=== PATIENT | male | born 1940 | race African-American/Black ===

== ENCOUNTER → 2016-08-28 | Outpatient (CLI) | payer MEDICARE, BC ==
[2016-06-11 16:40] VITALS: BP 129/60
[~2016-08-28] MED LIST: ALBU2.5V5 NEB; CHOL2000 PO; DONE5TAB33 PO; DULO30CA2 PO; ERGO500012 PO; FLUT1DIS5 IH; HYDR12.58 PO; LISI-338 PO; OXYC-244 PO; OXYC-323 PO; PRED-220 PO; PREG75CA PO; SAXA1TBM3 PO; TAMS0.4C2 PO; TRAZ100T12 PO; WARF5TAB PO
--- NOTE | 2016-08-28 08:19 | RAD ---
EXAM: Right groin ultrasound. HISTORY: Hernia repair in June 11, 2016. Right groin swelling. COMPARISON: None. FINDINGS: Sonographic evaluation of the region of right groin swelling was performed. There is a recurrent hernia containing nonobstructed loops of small bowel. This increases with Valsalva. Images of the left inguinal region are unremarkable. IMPRESSION: 1. Recurrent right inguinal hernia containing nonobstructed loops of small bowel.
== END | disposition home or self-care (01) ==
LOC: US 07:32
PROVIDERS: ATTEND Surgery
DX: R19.09 Other intra-abdominal and pelvic swelling, mass and lump (principal); K40.91 Unilateral inguinal hernia, without obstruction or gangrene, recurrent
CPT/HCPCS: 76881

== ENCOUNTER 2016-09-12 06:19 | Day surgery (SDC) | payer MEDICARE, BC ==
[~2016-09-12] VITALS: Ht 182.9 cm; Wt 75.7 kg
[~2016-09-12 06:19] MED LIST changes: +CEFAZOLIN 2GM PREMIX 50 ML IV PRN
[2016-09-12] MEDS ORDERED: BUPIVACAINE-EPI 0.25%-1:200000 50 ML VIAL. ONE (06:23)
[2016-09-12] MEDS ORDERED: ACETAMINOPHEN INTRAVENOUS 100 ML IV ONE ×2 (06:54→07:30)
[2016-09-12] MEDS ORDERED: LIDOCAINE 1% 1 ML SYRINGE. ID PRN (07:00)
[2016-09-12] MEDS ORDERED: IV RINGERS,LACTATED 1000ML 1,000 ML IV SCH (07:00)
[2016-09-12] MEDS ORDERED: PROCHLORPERAZINE 10 MG/2 ML VIAL. IV PRN (07:00)
[2016-09-12] MEDS ORDERED: FENTANYL PF 100 MCG/2 ML VIAL. IV PRN ×2 (07:00)
[2016-09-12] MEDS ORDERED: PROPOFOL 20 ML IV ONE (07:25)
[2016-09-12] MEDS ORDERED: FENTANYL PF 250 MCG/5 ML VIAL. ONE (07:25)
[2016-09-12] MEDS ORDERED: LIDOCAINE 2% 100 MG/5 ML DISP.SYRIN. ONE (07:25)
[2016-09-12] MEDS ORDERED: ROCURONIUM 50 MG/5 ML VIAL. ONE ×3 (07:25→08:04)
[2016-09-12] MEDS ORDERED: HYDROCORTISONE SOD SUCC/PF 100 MG/2 ML VIAL. ONE (07:26)
[2016-09-12] MEDS ORDERED: ONDANSETRON PF 4 MG/2 ML VIAL. ONE (07:26)
[2016-09-12] MEDS ORDERED: DEXAMETHASONE SOD PHOS 20 MG/5 ML VIAL. ONE (07:26)
[2016-09-12] MEDS ORDERED: NEOSTIGMINE METHYLSULFATE 5 MG/5 ML SYRINGE. ONE (07:57)
[2016-09-12] MEDS ORDERED: GLYCOPYRROLATE 1 MG/5 ML VIAL. ONE (07:57)
--- NOTE | 2016-09-12 09:20 | PDOC ---
BRIEF OPERATIVE NOTE Date: Sep 12, 2016 Pre-Op Diagnosis Recurrent RIH Post-Op Diagnosis Same Procedure Performed Robotic assisted L/S RIH repair with mesh Surgeon Dejuan Anesthesia Type: General Blood Loss 10ml Specimens Obtained None Findings as above Complications None ELIZABETH TROTTER MD Sep 12, 2016 09:20
--- NOTE | 2016-09-12 09:22 | DISCH ---
DISCHARGE INSTRUCTIONS Condition on Discharge Condition on Discharge: Stable Activity After Discharge Activity Instructions for Disc: Avoid exertion Other activity instructions: No lifting>20lbs for 2 weeks Diet after Discharge Diet after Discharge: Regular Wound Incision Care Other wound/incision instructi: May shower in 24 hours Contacting the after DC Call your doctor for: If your condition worsens Follow-Up Follow up with: Dr Trotter in 2 weeks ELIZABETH TROTTER MD Sep 12, 2016 09:22
[2016-09-12] MEDS ORDERED: HYDROCODONE/APAP 5/325MG TABLET. PO ONE (10:15)
--- NOTE | 2016-09-12 10:25 | OP ---
DATE OF SURGERY: 09/12/2016 PREOPERATIVE DIAGNOSIS: Recurrent right inguinal hernia. POSTOPERATIVE DIAGNOSIS: Recurrent right inguinal hernia. PROCEDURE: Robotic-assisted laparoscopic right inguinal hernia repair with mesh. SURGEON: Rocael Trotter M.D. INDICATIONS: The patient is a 75-year-old gentleman who had had a previous right inguinal hernia repair about 18 months ago. He is a known smoker with chronic cough, subsequently developed a recurrent hernia in the right side, procedure of robotic-assisted laparoscopic right inguinal hernia repair was explained to the patient in detail. Risks and benefits were also discussed including bleeding, infection, injury done to abdominal contents possibly sustained, further open operations. Alternatives of this procedure were also discussed with the patient who seemed to understand and gave a verbal and written consent to have the procedure performed. DESCRIPTION OF PROCEDURE: The patient was taken to the operating room and placed in the supine position. General anesthesia was initiated. Once he was asleep and intubated, he was repositioned in low lithotomy. His abdomen was prepped and draped in usual sterile fashion using ChloraPrep. An area just above the umbilicus was injected with 0.25% Marcaine with epinephrine. Incision was made with an 11 blade scalpel and a Veress needle was placed within the abdomen, pneumoperitoneum was achieved. Once this was complete, 8-mm port was placed and a 30-degree scope and camera placed within the abdomen. Abdomen was inspected. No other abnormalities were noted. It was noted that he did have a right inguinal hernia with containing bowel. At this point, two 8-mm ports were then placed, one in the left mid abdomen and one in the right mid abdomen under direct visualization. At this point, the da Annabella robot was brought in between the patient's legs and docked to the ports. Surgeon went to the robotic console. Using a grasper and EndoShears scissors, the peritoneum on the right side was incised. This flap was carried down past to the hernia defect reducing the hernia sac. Once this was complete and cleared up, a ProGrip mesh was placed on the floor of the inguinal canal covering the hernia defect using a 2-0 Vicryl. This was sutured into place with two single interrupted sutures, one up along the Edvin's ligament and one laterally. The peritoneum was then closed over the mesh with a running V-Loc suture. The hernia sac was tacked to the anterior abdominal wall with the V-Loc suture. Once this was complete, the da Annabella robot was undocked. Pneumoperitoneum was reduced. All ports were removed. Fascial defect at the umbilicus closed with [id number] Vicryl suture and the skin was reapproximated at all port sites with 4-0 subcuticular Monocryl. Mastisol, Steri-Strips, and Band-Aids were applied as dressings. The testicles were inspected and appeared to be within the scrotum in proper position. The patient was awakened, extubated in the operating room, taken to recovery in stable condition. All sponge, instrument counts listed as correct. Estimated blood loss 10 mL. ROCAEL TROTTER MD DR: JEFFREY/malka JOB#: [id number] / [id number] Claudia Tracey MD
[2016-09-12] MEDS ORDERED: ALBUTEROL SULFATE 2.5 MG/3 ML NEBU. ONE (10:26)
[2016-09-12] MEDS ORDERED: ALBUTEROL SULFATE 2.5 MG/3 ML NEBU. NEB ONE (10:30)
[2016-09-12 11:15] VITALS: BP 128/63
== END 2016-09-12 12:40 | disposition home or self-care (01) ==
LOC: SURG 06:19
PROVIDERS: ATTEND Surgery
DX: K40.91 Unilateral inguinal hernia, without obstruction or gangrene, recurrent (principal); I10 Essential (primary) hypertension; F44.9 Dissociative and conversion disorder, unspecified; M19.90 Unspecified osteoarthritis, unspecified site; F41.9 Anxiety disorder, unspecified; F32.9 Major depressive disorder, single episode, unspecified; E11.9 Type 2 diabetes mellitus without complications; Z98.41 Cataract extraction status, right eye; Z98.42 Cataract extraction status, left eye; Z90.49 Acquired absence of other specified parts of digestive tract; Z96.641 Presence of right artificial hip joint
CPT/HCPCS: 49651; 82947; C1781; J0131; J0690; J1100; J1720; J2405; J2704; J2710; J3010; J3490; J7120

== ENCOUNTER → 2017-06-25 | Outpatient (CLI) | payer MEDICARE, BC | END | disposition home or self-care (01) | LOC: US 16:00 | DX: I72.1 Aneurysm of artery of upper extremity (principal); I70.8 Atherosclerosis of other arteries | CPT/HCPCS: 93931 ==

== ENCOUNTER → 2017-07-17 | Outpatient (CLI) | payer MEDICARE, BC | END | disposition home or self-care (01) | LOC: RAD 10:08 | DX: M47.892 Other spondylosis, cervical region (principal); Z98.890 Other specified postprocedural states | CPT/HCPCS: 72040 ==

== ENCOUNTER → 2017-08-07 | Outpatient (CLI) | payer MEDICARE, BC | END | disposition home or self-care (01) | LOC: RAD 10:29 | DX: M48.02 Spinal stenosis, cervical region (principal); Z98.1 Arthrodesis status; Z98.890 Other specified postprocedural states | CPT/HCPCS: 72040 ==

== ENCOUNTER → 2018-01-05 | Outpatient (CLI) | payer MEDICARE, BC | END | disposition home or self-care (01) | LOC: US 07:53 | DX: R14.0 Abdominal distension (gaseous) (principal) | CPT/HCPCS: 76700 ==

== ENCOUNTER → 2018-01-05 | Outpatient (CLI) | payer MEDICARE, BC ==
[~2018-01-05] MED LIST changes: -ALBU2.5V5 NEB; -CEFAZOLIN 2GM PREMIX 50 ML IV PRN; -CHOL2000 PO; -DONE5TAB33 PO; -DULO30CA2 PO; -ERGO500012 PO; -FLUT1DIS5 IH; -HYDR12.58 PO; +IOHEXOL 180 MG/ML 10 ML VIAL.; +LIDOCAINE 1% PF 2 ML VIAL.; -LISI-338 PO; -OXYC-244 PO; -OXYC-323 PO; -PRED-220 PO; -PREG75CA PO; -SAXA1TBM3 PO; -TAMS0.4C2 PO; -TRAZ100T12 PO; -WARF5TAB PO; +methylPREDNISolone ACETATE 40 MG/ML VIAL.; +methylPREDNISolone ACETATE 80 MG/ML VIAL.
== END ==
LOC: PNCL 08:48
DX: M50.123 Cervical disc disorder at C6-C7 level with radiculopathy (principal); M96.1 Postlaminectomy syndrome, not elsewhere classified; M48.02 Spinal stenosis, cervical region; M47.22 Other spondylosis with radiculopathy, cervical region; I10 Essential (primary) hypertension; M19.90 Unspecified osteoarthritis, unspecified site; E78.00 Pure hypercholesterolemia, unspecified; F32.9 Major depressive disorder, single episode, unspecified; F41.9 Anxiety disorder, unspecified; J44.9 Chronic obstructive pulmonary disease, unspecified; E11.9 Type 2 diabetes mellitus without complications; Z98.890 Other specified postprocedural states; Z98.1 Arthrodesis status; Z79.899 Other long term (current) drug therapy; Z98.42 Cataract extraction status, left eye; Z98.41 Cataract extraction status, right eye; Z90.49 Acquired absence of other specified parts of digestive tract; Z83.3 Family history of diabetes mellitus; Z82.49 Family history of ischemic heart disease and other diseases of the circulatory system
CPT/HCPCS: 62321; J1030; J1040; Q9965

== ENCOUNTER → 2018-01-20 | Outpatient (CLI) | payer MEDICARE, BC ==
[~2018-01-20] MED LIST changes: -LIDOCAINE 1% PF 2 ML VIAL.; +LIDOCAINE 2% PF 2ML VIAL.
== END | disposition home or self-care (01) ==
LOC: PNCL 11:08
DX: M50.123 Cervical disc disorder at C6-C7 level with radiculopathy (principal); M96.1 Postlaminectomy syndrome, not elsewhere classified; Z98.42 Cataract extraction status, left eye; Z98.41 Cataract extraction status, right eye; Z96.1 Presence of intraocular lens; Z98.890 Other specified postprocedural states; G20 Parkinson's disease; E11.42 Type 2 diabetes mellitus with diabetic polyneuropathy; E78.00 Pure hypercholesterolemia, unspecified; I10 Essential (primary) hypertension; J44.9 Chronic obstructive pulmonary disease, unspecified; Z90.49 Acquired absence of other specified parts of digestive tract; M19.90 Unspecified osteoarthritis, unspecified site; Z96.641 Presence of right artificial hip joint; F32.9 Major depressive disorder, single episode, unspecified; F41.9 Anxiety disorder, unspecified; F17.200 Nicotine dependence, unspecified, uncomplicated; Z83.3 Family history of diabetes mellitus; Z82.49 Family history of ischemic heart disease and other diseases of the circulatory system; Z79.84 Long term (current) use of oral hypoglycemic drugs; Z79.899 Other long term (current) drug therapy; Z98.1 Arthrodesis status
CPT/HCPCS: 62321; J1030; J1040; J2001; Q9965

== ENCOUNTER → 2018-02-10 | Outpatient (CLI) | payer MEDICARE, BC ==
[2017-06-06 17:14] VITALS: BP 117/69
[~2018-02-10] MED LIST changes: +ALBU2.5V14 NEB; +ALBU2.5V5 NEB; +BENZ-8 PO; +CHOL2000 PO; +DONE5TAB56 PO; +DULO30CA2 PO; +ERGO500027 PO; +FLUT1DIS5 IH; +HYDR12.58 PO; -IOHEXOL 180 MG/ML 10 ML VIAL.; +IPRA0.2S5 NEB; -LIDOCAINE 2% PF 2ML VIAL.; +LISI-338 PO; +METF500T5 PO; +METH-38 PO; +OXYC-323 PO; +OXYC-327 PO; +PRED-220 PO; +PREG150C PO; +PREG75CA PO; +SAXA1TBM3 PO; +SPIR50TA4 PO; +TAMS0.4C2 PO; +TRAZ-86 PO; +VITA150T PO; +WARF-78 PO; +[UNRECOGNIZED DRUG - CODE] PO; -methylPREDNISolone ACETATE 40 MG/ML VIAL.; -methylPREDNISolone ACETATE 80 MG/ML VIAL.
[2018-02-10 14:54] LABS: BASO # 0.1 x10^3/uL (0.0-0.2); BASO % 1 % (0-3); EOS % 0 % (0-3); HEMATOCRIT 42.5 % (39.0-53.0); HEMOGLOBIN 14.6 g/dL (13.0-17.5); LYMPH # 1.3 x10^3/uL (1.0-4.8); LYMPH % 9 % (24-48); MEAN CORPUSCULAR HEMOGLOBIN 31 pg (25-35); MEAN CORPUSCULAR HGB CONC 34 g/dL (31-37); MEAN CORPUSCULAR VOLUME 91 fL (79-100); MONO # 0.5 x10^3/uL (0.0-1.1); MONO % 3 % (0-9); NEUT # 11.6 x10^3uL (1.8-7.7); NEUT % 87 % (31-73); PLATELET COUNT 232 x10^3/uL (140-400); RED BLOOD COUNT 4.65 x10^6/uL (4.30-5.70); RED CELL DISTRIBUTION WIDTH 14.7 % (11.5-14.5); WHITE BLOOD COUNT 13.4 x10^3/uL (4.0-11.0)
[2018-02-10 15:11] LABS: ALBUMIN 3.4 g/dL (3.4-5.0); ALBUMIN/GLOBULIN RATIO 0.8 (1.0-1.7); CALCIUM 9.3 mg/dL (8.5-10.1); CREATININE 0.9 mg/dL (0.7-1.3); POTASSIUM 4.8 mmol/L (3.5-5.1); TOTAL BILIRUBIN 0.3 mg/dL (0.2-1.0); TOTAL PROTEIN 7.6 g/dL (6.4-8.2)
[2018-02-10 18:19] LABS: % BASOS 1 % (0-3); % LYMPHS 11 % (24-48); % MONOS 4 % (0-10); % SEGS 84 % (35-66)
[2018-02-10 18:42] LABS: PLT ESTIMATE ADEQUATE (ADEQUATE); TOXIC GRANULATION SLIGHT
[2018-02-12 01:14] LABS: HEMOGLOBIN A1C 6.2 % (4.8-5.6)
== END | disposition home or self-care (01) ==
LOC: SURGPAT 13:20
PROVIDERS: ATTEND Neurological Surgery
DX: Z01.818 Encounter for other preprocedural examination (principal); M48.02 Spinal stenosis, cervical region; M50.121 Cervical disc disorder at C4-C5 level with radiculopathy; I10 Essential (primary) hypertension; E11.9 Type 2 diabetes mellitus without complications; E78.5 Hyperlipidemia, unspecified; E78.00 Pure hypercholesterolemia, unspecified; Z79.4 Long term (current) use of insulin; Z82.49 Family history of ischemic heart disease and other diseases of the circulatory system; J43.9 Emphysema, unspecified; Z87.891 Personal history of nicotine dependence; Z96.641 Presence of right artificial hip joint
CPT/HCPCS: 36415; 80053; 83036; 85007; 85025; 87641

== ENCOUNTER → 2018-04-08 | Outpatient (CLI) | payer MEDICARE, BC ==
[2018-02-17 11:20] VITALS: BP 121/72
[~2018-04-08] MED LIST changes: +METF500T16 PO; -METF500T5 PO
--- NOTE | 2018-04-08 12:37 | RAD ---
EXAM: Cervical spine, 2 views. HISTORY: Fusion. COMPARISON: 02/16/2018 FINDINGS: 2 views of the cervical spine are obtained. There is instrumented anterior spinal fusion and interbody fusion at C3-C4 and C4-C5. There is mild anterolisthesis of C4 on C5, measuring 2.5 mm. There is degenerative endplate remodeling with disc space narrowing and osteophytosis at C5-C6 and C6-C7. There is facet arthropathy at all levels. IMPRESSION: 1. Instrumented fusion at C3-C5. 2. Degenerative change primarily at C5-C7. 3. Mild anterolisthesis of C4 on C5. Electronically signed by: Mireya Lange MD (04/08/2018 12:33 PM) [facility]
== END | disposition home or self-care (01) ==
LOC: RAD 11:49
PROVIDERS: ATTEND Neurological Surgery
DX: Z47.89 Encounter for other orthopedic aftercare (principal); M47.892 Other spondylosis, cervical region; Z98.1 Arthrodesis status
CPT/HCPCS: 72040

== ENCOUNTER → 2018-06-08 | Outpatient (CLI) | payer MEDICARE, BC ==
[2018-02-17 11:20] VITALS: BP 121/72
[~2018-06-08] MED LIST changes: -OXYC-323 PO; -OXYC-327 PO; +OXYC1TAB15 PO; +OXYC1TAB19 PO
--- NOTE | 2018-06-08 16:46 | RAD ---
2 views of the cervical spine compared to similar study dated April 08, 2018 for postop cervical surgery, patient felt a pop in the neck after surgery. FINDINGS: There is anterior cervical disc fusion from C3 through C5, with spacers at both levels. Fixation hardware from C3 to C4 is not affixed to the C4-5 hardware, however the overall appearance of the surgical site and all hardware is unchanged from prior radiographs. Degenerative narrowing at C5-6 and C6-7 is noted with anterior osteophytes as well as small posterior osteophytes. Prevertebral soft tissues are grossly unremarkable. Right carotid artery calcifications are noted. IMPRESSION: 1. Stable appearing postsurgical changes of the cervical spine as described. No acute osseous or alignment abnormality. 2. Right carotid artery atherosclerosis. Electronically signed by: Farshad Soto MD (06/08/2018 4:42 PM) [facility]
== END | disposition home or self-care (01) ==
LOC: RAD 15:42
PROVIDERS: ATTEND Family Medicine
DX: I65.21 Occlusion and stenosis of right carotid artery (principal); M25.78 Osteophyte, vertebrae; M48.02 Spinal stenosis, cervical region
CPT/HCPCS: 72040

== ENCOUNTER → 2018-06-22 | Outpatient (CLI) | payer MEDICARE, BC ==
[2018-02-17 11:20] VITALS: BP 121/72
[~2018-06-22] MED LIST changes: +GADOBUTROL 10 MMOL/10 ML VIAL IV ONE; +SPIR25TA5 PO
--- NOTE | 2018-06-22 15:24 | KCIC ---
MRI Cervical Spine with and without contrast History: Cervical stenosis, previous surgeries, bilateral upper extremity numbness Technique: Multiplanar, multi sequential pre and postcontrast MR imaging was performed of the cervical spine. Comparison: Cervical spine radiographs June 08, 2018 and June 01, 2017 MRI exam Findings: There is some motion degradation. As seen on recent radiographs although new since previous MRI exam, there are anterior metallic plates at C3-C4 and C4-5. This exam does not accurately evaluate hardware. Osseous interbody fusion is not apparent. There is again fairly advanced degenerative disc disease C6-7 and to lesser degree at C5-6 and C7-T1. There is again grade 1 anterior spondylolisthesis C7-T1 and C4-5. Cervical vertebral body stature is overall maintained. There is no convincing enhancement of the cervical cord. Allowing for motion artifact, no convincing marrow edema is identified. C2-C3: There is very minimal disc osteophyte complex and protrusion. Central canal is adequate about 15 mm. There is again likely mild posterior narrowing of the left neural foramen, right neural foramen not significantly narrowed. C3-C4: There is severe left facet degenerative change. There is mild buckling of the ligamentum flavum. Central canal is borderline about 10 mm. Poorly evaluated, there is probable mild neural foramina compromise bilaterally. C4-C5: There is disc osteophyte complex. There is buckling of the ligamentum flavum. Central canal is narrowed to about 7 to 8 mm. There is uncovertebral and facet degenerative change, suspected fairly severe left and moderate to severe right neural foramina compromise. C5-C6: There is disc osteophyte complex and bulge. There is buckling of the ligamentum flavum. There is likely mild narrowing of the central canal about 9 mm. There is facet and uncovertebral degenerative change bilaterally, suspected severe left and at least moderate to severe right neural foramina compromise. C6-C7: There is very minimal disc osteophyte complex and bulge. Central canal is borderline about 10 mm. There is severe narrowing of the left neural foramen due to facet and uncovertebral degenerative change, likely at least moderate narrowing on the right. C7-T1: There is again posterior bulge and more central protrusion. Central canal is narrowed to about 9 to 10 mm. There is facet degenerative change. There is fairly severe narrowing of the left neural foramen, right neural foramen adequate. Impression: 1. There is anterior fusion hardware C3-4 and C4-5, hardware not accurately evaluated on this exam. There is spinal stenosis about 7 mm at C4-5, minimally at C5-6 and C7-T1. 2. Multilevel facet and uncovertebral degenerative change results in multilevel neural foramina compromise, more significant narrowing on the left at C7-T1 and C6-7, bilaterally at C5-6 and C4-5, a lesser degree of narrowing on the right at C6-7. Electronically signed by: Fidel Rossi MD (06/22/2018 3:20 PM) [facility]
== END | disposition home or self-care (01) ==
LOC: KCIC MRI 13:05
PROVIDERS: ATTEND Neurological Surgery
DX: M48.02 Spinal stenosis, cervical region (principal); M48.03 Spinal stenosis, cervicothoracic region; M25.78 Osteophyte, vertebrae; M43.13 Spondylolisthesis, cervicothoracic region; M50.33 Other cervical disc degeneration, cervicothoracic region
CPT/HCPCS: 72156; 82565; A9585

== ENCOUNTER 2020-01-31 14:58 | Inpatient (IN) | payer MEDICARE, BC ==
[~2020-01-31] VITALS: Ht 182.9 cm; Wt 74.4 kg
[~2020-01-31 14:58] MED LIST changes: +FLUT16SP NS; -GADOBUTROL 10 MMOL/10 ML VIAL IV ONE; +HYDR-3164 PO; +IPRA3AMP29 NEB; +LEVO500T59 PO; +POLY17PO28 PO; +PRED20TA PO; +PREG-9 PO; -PREG75CA PO; +TIOT18CA IH; +TRAZ-123 PO; -TRAZ-86 PO; +URSO300C26 PO; -WARF-78 PO; +WARF5TAB2 PO
[2020-01-31] MEDS ORDERED: IPRATRPIUM/ALBUTEROL 0.5/2.5MG 3 ML NEBU. NEB ONE (15:30)
--- NOTE | 2020-01-31 15:37 | PHYS DOC ---
Past Medical History Past Medical History: COPD, Depression, Diabetes-Type II, High Cholesterol, Hypertension Additional Past Medical Histor: NEUROPATHY Past Surgical History: Cholecystectomy, Hip Replacement Additional Past Surgical Histo: RIGHT HIP Smoking Status: Former Smoker Alcohol Use: None Drug Use: None General Adult EDM: Chief Complaint: SHORTNESS OF BREATH HPI: HPI: Patient is a 79 year old male who presents with states he was at Dr. Rich's office for this cough and increased shortness of breath and was sent here for evaluation. Patient states he wears oxygen every day all day at 3 L. Patient is currently on 3 L at 100%. Patient states is not coughing up any weakness. States he is on prednisone 20 mg a day. He states he is not currently on any antibiotics. He states that off and on for the last 2 weeks he is had increased shortness of breath and left-sided chest pains. He also states at times the pain will go into his left upper abdomen. He states that this time he has no pain other than his chronic neuropathy pains. He does have COPD, history of respiratory failure, pneumonia, arthritis, right inguinal hernia, neuropathy, diabetes, high cholesterol, hypertension, cholecystectomy. Patient does speak in full sentences but does sound slightly winded when speaking. Lungs have inspiratory expiratory coarse sounds throughout. He is afebrile. He is tachycardic at 113 but is sinus rhythm. He rates his overall neuropathy pains in his extremities at a 5 out of 10. Review of Systems: Review of Systems: Constitutional: Denies fever or chills. [] Eyes: Denies change in visual acuity. [] HENT: Denies nasal congestion or sore throat. [] Respiratory: Increased cough or shortness of breath. [] Cardiovascular: Intermittent left chest pain or denies edema. [] GI: Intermittent Left abdominal pain, denies nausea, vomiting, bloody stools or diarrhea. [] : Denies dysuria. [] Musculoskeletal: Denies back pain or joint pain. [] Integument: Denies rash. [] Neurologic: Denies headache, focal weakness or sensory changes. [] Endocrine: Denies polyuria or polydipsia. [] Lymphatic: Denies swollen glands. [] Psychiatric: Denies depression or anxiety. [] Heart Score: HEART Score for Chest Pain: HEART Score for Chest Pain Response (Comments) Value History Slighlty/Non-Suspicious 0 ECG Nonspecific Repolarizatio 1 Age > 65 2 Risk Factors >3 Risk Factors or Hx CAD 2 Total 5 Risk Factors: Risk Factors: DM, Current or recent (<one month) smoker, HTN, HLP, family history of CAD, obesity. Risk Scores: Score 0 - 3: 2.5% MACE over next 6 weeks - Discharge Home Score 4 - 6: 20.3% MACE over next 6 weeks - Admit for Clinical Observation Score 7 - 10: 72.7% MACE over next 6 weeks - Early Invasive Strategies Current Medications: Current Medications Medications (Trade) Dose Ordered Sig/Lurdes Start Time Stop Time Status Last Admin Dose Admin Albuterol/ Ipratropium (Duoneb) 3 ml 1X ONCE 01/31/20 15:30 01/31/20 15:31 Allergies: Allergies: Allergies Coded Allergies Type Severity Reaction Last Updated Verified codeine Adverse Reaction Intermediate 07/13/18 Yes Physical Exam: PE: Constitutional: Well developed, well nourished, no acute distress, non-toxic appearance. [] HENT: Normocephalic, atraumatic, bilateral external ears normal, oropharynx moist, no oral exudates, nose normal. [] Eyes: PERRLA, EOMI, conjunctiva normal, no discharge. [] Neck: Normal range of motion, no tenderness, supple, no stridor. [] Cardiovascular:Heart rate regular tachy rhythm, no murmur [] Lungs & Thorax: Bilateral breath sounds inspiratory and expiratory coarse sounds to auscultation [] Abdomen: Bowel sounds normal, soft, no tenderness, no masses, no pulsatile masses. [] Skin: Warm, dry, no erythema, no rash. [] Back: No tenderness, no CVA tenderness. [] Extremities: No tenderness, no cyanosis, no clubbing, ROM intact, no edema. [] Neurologic: Alert and oriented X 3, normal motor function, normal sensory function, no focal deficits noted. [] Psychologic: Affect normal, judgement normal, mood normal. [] EKG: EK and read by Dr Gauthier as Sinus Tachycardia without STEMI[] Radiology/Procedures: Radiology/Procedures: [] Impression: [facility] [address] [place] [address] IMAGING REPORT Signed PATIENT: MAYA PALOMARES: [id number] : 1940 LOCATION: ER AGE: 79 SEX: M EXAM STATUS: REG ER ORD. PHYSICIAN: INOCENCIA TEIXEIRA APRN REASON: soa PROCEDURE: PORTABLE CHEST 1V EXAM: AP View of the chest DATE: 01/31/2020 3:24 PM INDICATION: Shortness of air COMPARISON: 07/13/2018 FINDINGS: The heart is not enlarged. Mediastinal and hilar contours are stable. Patchy airspace opacities in the right lung base, may be partially nodular. Extensive emphysematous changes bilaterally. Trace blunting right costophrenic angle likely small left pleural effusion. No definite pneumothorax is seen although extensive bullous changes noted. IMPRESSION: 1. Right lung base airspace opacities. Imaging follow-up to resolution is recommended, particularly given the findings on prior radiograph. 2. Background of emphysematous change. Electronically signed by: Daniel Ramirez MD (01/31/2020 4:51 PM) [facility] DICTATED and SIGNED BY: DANIEL RAMIREZ MD DATE: 01/31/20 1651 [facility] [address] [place], [place] [id number] IMAGING REPORT Signed PATIENT: MAYA PALOMARES: [id number] : 1940 LOCATION: ER AGE: 79 SEX: M EXAM STATUS: REG ER ORD. PHYSICIAN: INOCENCIA TEIXEIRA APRN REASON: abd pain PROCEDURE: CT ABD PELV W/ IV CONTRST ONLY EXAM: CT Abdomen and Pelvis with IV contrast CLINICAL HISTORY: Abdominal pain. COMPARISON: 01/31/2020-chest x-ray. CT chest 07/13/2018 TECHNIQUE: Helical CT of the abdomen and pelvis was performed following the administration of IV contrast. Axial, coronal and sagittal reformatted images were generated. ---PQRS compliance statement - One or more of the following individualized dose reduction techniques were utilized for this study: 1. Automated exposure control 2. Adjustment of the mA and/or kV according to patient size 3. Use of iterative reconstruction technique--- FINDINGS: Lower chest: Linear opacities in the lower lobes of the lungs likely scarring/atelectasis. Extensive bronchiectasis right lower lobe with associated nodular opacity measures 1.1 x 0.9 cm with associated linear opacities. The dominant portion of the previously seen pleural-based right lower lobe mass has resolved. Emphysematous changes are seen. Abdomen and pelvis: Liver and biliary system: No dominant liver lesion is seen. There has been a cholecystectomy. No biliary ductal dilatation. Spleen: Calcified granuloma are seen within the spleen. Pancreas: Unremarkable Adrenal glands: Right adrenal lesion measures approximately 1.3 cm, previously described as an adenoma. Kidneys: Symmetric nephrograms although intermittent renal cortical scarring bilaterally no hydronephrosis or hydroureter. No dominant renal lesion is seen. Lymph nodes/retroperitoneum: No abdominal or pelvic lymphadenopathy. Vessels: Aorta is normal in caliber with dense atherosclerotic calcifications of the infrarenal aorta and bilateral iliacs. Bowel/Peritoneal cavity: Moderate colonic stool content is seen. No small or large bowel dilatation. Colonic diverticula are seen. No CT evidence for acute diverticulitis. Appendix is normal. No abdominal or pelvic ascites. Abdominal wall: Trace fat-containing periumbilical hernia. Bladder: Diffuse bladder wall thickening likely cystitis. Bones: Extensive streak artifact from the right hip arthroplasty limits evaluation of the pelvis. Rightward curvature lumbar spine apex L4. Left hip joint osteoarthritis. IMPRESSION: 1. Moderate colonic stool content is seen. No bowel obstruction. 2. Appendix is normal. 3. Accounting for postcholecystectomy change, no biliary ductal dilatation. 4. Bladder wall thickening may be seen with cystitis although incompletely assessed given streak artifact from right hip arthroplasty. 5. Right lower lobe 1.1 x 0.9 cm nodular opacity adjacent to bronchiectasis. Recommend follow-up CT in 3 months to exclude underlying mass. Although PET CT can also be performed, respiratory motion artifact may limit evaluation given the proximity to the diaphragm. Electronically signed by: Daniel Ramirez MD (01/31/2020 5:12 PM) [facility] DI[facility]ATED and SIGNED BY: DANIEL RAMIREZ MD DATE: 01/31/20 171 Course & Med Decision Making: Course & Med Decision Making Pertinent Labs and Imaging studies reviewed. (See chart for details) COVID-19 CRITERIA: The patient was evaluated during the global COVID-19 pandemic, and that diagnosis was suspected/considered upon their initial presentation. Their evaluation, treatment and testing was consistent with current guidelines for patients who present with complaints or symptoms that may be related to COVID-19. Alert and oriented x4. See HPI. Skin pink warm and dry. He is very no extremity edema. Patient states he has been using his nebulizer at home and it does help. IMPRESSION: 1. Moderate colonic stool content is seen. No bowel obstruction. 2. Appendix is normal. 3. Accounting for postcholecystectomy change, no biliary ductal dilatation. 4. Bladder wall thickening may be seen with cystitis although incompletely assessed given streak artifact from right hip arthroplasty. 5. Right lower lobe 1.1 x 0.9 cm nodular opacity adjacent to bronchiectasis. Recommend follow-up CT in 3 months to exclude underlying mass. Although PET CT can also be performed, respiratory motion artifact may limit evaluation given the proximity to the diaphragm. Doxycycline is ordered. Patient is tested for COVID. [] Dragon Disclaimer: Dragon Disclaimer: This electronic medical record was generated, in whole or in part, using a voice recognition dictation system. COVID-19 Patient Risks: Age 65 or older: Yes Sign of co-morbidity: Yes Exp to person + for COVID: No Exp to PUI: No Travel from affected area: No Lower respiratory symptoms: Yes Fever: No Other: No PPE Use: Full PPE with N95 mask or PAPR: Yes Departure Departure Impression: Primary Impression: Pneumonia Qualified Codes: J18.9 - Pneumonia, unspecified organism Additional Impression: Person under investigation for COVID-19 Disposition: ADMITTED INPATIENT Admitting Physician: YADIEL Condition: STABLE Referrals: Claudia RICH MD (PCP) Justicifation of Admission Dx: Justifications for Admission: Justification of Admission Dx: Yes Acute COPD Exacerbation: Acute COPD Exacerbation INOCENCIA TEIXEIRA IRRIGATOR SPRINKLING SYSTEM Jan 31, 2020 15:37
[2020-01-31 15:50] LABS: BASO % 0 % (0-3); EOS % 0 % (0-3); HEMATOCRIT 44.7 % (39.0-53.0); HEMOGLOBIN 15.3 g/dL (13.0-17.5); LYMPH # 0.5 x10^3/uL (1.0-4.8); LYMPH % 3 % (24-48); MEAN CORPUSCULAR HEMOGLOBIN 31 pg (25-35); MEAN CORPUSCULAR HGB CONC 34 g/dL (31-37); MEAN CORPUSCULAR VOLUME 91 fL (79-100); MONO # 0.4 x10^3/uL (0.0-1.1); MONO % 2 % (0-9); NEUT % 94 % (31-73); PLATELET COUNT 282 x10^3/uL (140-400); RED BLOOD COUNT 4.93 x10^6/uL (4.30-5.70); RED CELL DISTRIBUTION WIDTH 13.4 % (11.5-14.5)
[2020-01-31 16:05] LABS: CALCIUM 9.7 mg/dL (8.5-10.1); CREATININE 1.3 mg/dL (0.7-1.3); GFR 64.4; POTASSIUM 5.5 mmol/L (3.5-5.1)
[2020-01-31 16:16] LABS: ALBUMIN 3.9 g/dL (3.4-5.0); ALBUMIN/GLOBULIN RATIO 0.9 (1.0-1.7); TOTAL BILIRUBIN 0.5 mg/dL (0.2-1.0); TOTAL PROTEIN 8.1 g/dL (6.4-8.2)
[2020-01-31] MEDS ORDERED: CONTRAST GIVEN. MC PRN (16:30)
[2020-01-31] MEDS ORDERED: IOHEXOL 300 MG/ML 100ML VIAL. IV ONE (16:30)
[2020-01-31 16:35] LABS: BILIRUBIN,URINE NEGATIVE (NEG); CLARITY,URINE CLEAR; COLOR,URINE YELLOW; NITRITE,URINE NEGATIVE (NEG); PROTEIN,URINE NEGATIVE (NEG-TRACE); UROBILINOGEN,URINE 0.2 mg/dL (0.2 mg/dL)
[2020-01-31 16:40] LABS: BASE EXCESS COOX -1 mmol/L (-3-3); HCO3 COOX 25 mmol/L (21-28); METHEMOGLOBIN 0.4 % (0.0-1.9); OXYHEMOGLOBIN 96.6 %; PCO2 COOX 44 mmHg (35-46); PO2 COOX 102 mmHg (65-108); SAT O2 COOX 97 % (92-99)
[2020-01-31 16:40] LABS: BACTERIA,URINE MODERATE /HPF (0-FEW); HYALINE CASTS, URINE MODERATE /HPF; RBC,URINE 0 /HPF (0-2); SQUAMOUS EPITHELIAL CELL,UR FEW /LPF
--- NOTE | 2020-01-31 16:54 | RAD ---
EXAM: AP View of the chest DATE: 01/31/2020 3:24 PM INDICATION: Shortness of air COMPARISON: 07/13/2018 FINDINGS: The heart is not enlarged. Mediastinal and hilar contours are stable. Patchy airspace opacities in the right lung base, may be partially nodular. Extensive emphysematous changes bilaterally. Trace blunting right costophrenic angle likely small left pleural effusion. No definite pneumothorax is seen although extensive bullous changes noted. IMPRESSION: 1. Right lung base airspace opacities. Imaging follow-up to resolution is recommended, particularly given the findings on prior radiograph. 2. Background of emphysematous change. Electronically signed by: Daniel Anderson MD (01/31/2020 4:51 PM) [facility]
--- NOTE | 2020-01-31 17:15 | RAD ---
EXAM: CT Abdomen and Pelvis with IV contrast CLINICAL HISTORY: Abdominal pain. COMPARISON: 01/31/2020-chest x-ray. CT chest 07/13/2018 TECHNIQUE: Helical CT of the abdomen and pelvis was performed following the administration of IV contrast. Axial, coronal and sagittal reformatted images were generated. ---PQRS compliance statement - One or more of the following individualized dose reduction techniques were utilized for this study: 1. Automated exposure control 2. Adjustment of the mA and/or kV according to patient size 3. Use of iterative reconstruction technique--- FINDINGS: Lower chest: Linear opacities in the lower lobes of the lungs likely scarring/atelectasis. Extensive bronchiectasis right lower lobe with associated nodular opacity measures 1.1 x 0.9 cm with associated linear opacities. The dominant portion of the previously seen pleural-based right lower lobe mass has resolved. Emphysematous changes are seen. Abdomen and pelvis: Liver and biliary system: No dominant liver lesion is seen. There has been a cholecystectomy. No biliary ductal dilatation. Spleen: Calcified granuloma are seen within the spleen. Pancreas: Unremarkable Adrenal glands: Right adrenal lesion measures approximately 1.3 cm, previously described as an adenoma. Kidneys: Symmetric nephrograms although intermittent renal cortical scarring bilaterally no hydronephrosis or hydroureter. No dominant renal lesion is seen. Lymph nodes/retroperitoneum: No abdominal or pelvic lymphadenopathy. Vessels: Aorta is normal in caliber with dense atherosclerotic calcifications of the infrarenal aorta and bilateral iliacs. Bowel/Peritoneal cavity: Moderate colonic stool content is seen. No small or large bowel dilatation. Colonic diverticula are seen. No CT evidence for acute diverticulitis. Appendix is normal. No abdominal or pelvic ascites. Abdominal wall: Trace fat-containing periumbilical hernia. Bladder: Diffuse bladder wall thickening likely cystitis. Bones: Extensive streak artifact from the right hip arthroplasty limits evaluation of the pelvis. Rightward curvature lumbar spine apex L4. Left hip joint osteoarthritis. IMPRESSION: 1. Moderate colonic stool content is seen. No bowel obstruction. 2. Appendix is normal. 3. Accounting for postcholecystectomy change, no biliary ductal dilatation. 4. Bladder wall thickening may be seen with cystitis although incompletely assessed given streak artifact from right hip arthroplasty. 5. Right lower lobe 1.1 x 0.9 cm nodular opacity adjacent to bronchiectasis. Recommend follow-up CT in 3 months to exclude underlying mass. Although PET CT can also be performed, respiratory motion artifact may limit evaluation given the proximity to the diaphragm. Electronically signed by: Daniel Anderson MD (01/31/2020 5:12 PM) [facility]
[2020-01-31] MEDS ORDERED: IV NORMAL SALINE 1000ML BAG 1,000 ML IV ONE (17:30)
[2020-01-31] MEDS ORDERED: methylPREDNISolone SOD SUCC PF 125 MG/2 ML VIAL. IV ONE (17:30)
[2020-01-31] MEDS ORDERED: ONDANSETRON PF 4 MG/2 ML VIAL. IV PRN (18:00)
[2020-01-31] MEDS ORDERED: DOXYCYCLINE HYCLATE 100 MG in IV DEXTROSE 5% 100ML 100 ML IV ONE (18:00)
[2020-01-31 18:07] LABS: % LYMPHS 2 % (24-48); % MONOS 3 % (0-10); % SEGS 95 % (35-66); PLT ESTIMATE ADEQUATE (ADEQUATE)
[2020-01-31 21:37] VITALS: BP 143/61
--- NOTE | 2020-01-31 21:43 | NUR ---
Pt. arrived around 0620 via bed from ED w/ Pneumonia and PUI. He is A/O x4 and will make needs known.
[2020-02-01 03:11] VITALS: BP 152/72
--- NOTE | 2020-02-01 04:50 | EKG ---
[facility] [address] [place] [address] Test Date: 2020-01-31 Test Time: 15:19:58 Pat Name: ALLAN PALOMARES Department: Room: Gender: M [employer] Operator: : 1940 Requested By: INOCENCIA TEIXEIRA Order Number: [id number] Reading MD: Measurements Intervals [place] Rate: 113 P: 42 MN: 162 QRS: 15 QRSD: 94 T: 90 QT: 330 QTc: 458 Interpretive Statements SINUS TACHYCARDIA VENTRICULAR PREMATURE COMPLEX(ES) INTERPOLATED ATRIAL PREMATURE COMPLEX(ES) LOW LIMB LEAD VOLTAGE QRS(T) CONTOUR ABNORMALITY CONSISTENT WITH ANTEROSEPTAL INFARCT PROBABLY OLD T ABNORMALITY IN HIGH LATERAL LEADS ABNORMAL ECG RI6.01 No previous ECG available for comparison
[2020-02-01 07:00] VITALS: BP 126/79
--- NOTE | 2020-02-01 08:24 | PDOC1 ---
History and Physical Date of Admission Date of Admission DATE: 02/01/20 TIME: 08:23 Source Source: Chart review, Patient History of Present Illness History of Present Illness Mr. Ortega, is a 79 year old admit last night, was at Dr. Rich's office for this cough and increased shortness of breath and was sent here for evaluation. chronic hypxoia, then acute resp change yesterday, tachypneic to 50 range in ER. some recent shortness of breath for 2 weeks he is had increased shortness of breath and left-sided chest pains. He does have COPD, Patient is able to speak in full sentences. is not hungry for breakfast, too weak to get his orange juice open, I had to assist He rates his overall pain 5 out of 10, new pain different from his chronic pain. Past Medical History Past Medical History prior pneumonia, arthritis, right inguinal hernia, neuropathy, diabetes, high cholesterol, hypertension, cholecystectomy. Cardiovascular: HTN Pulmonary: COPD CENTRAL NERVOUS SYSTEM: Dementia GI: No pertinent hx Family History Family History: No Significant Social History Smoke: No ALCOHOL: none Current Problem List Problem List Problems Medical Problems: (1) Person under investigation for COVID-19 Status: Acute Current Medications Current Medications Current Medications Albuterol/ Ipratropium (Duoneb) 3 ml 1X ONCE NEB Last administered on 01/31/20at 16:34; Start 01/31/20 at 15:30; Stop 01/31/20 at 15:33; Status DC Iohexol (Omnipaque 300 Mg/ml) 75 ml 1X ONCE IV Last administered on 01/31/20at 16:59; Start 01/31/20 at 16:30; Stop 01/31/20 at 16:31; Status DC Info (CONTRAST GIVEN -- Rx MONITORING) 1 each PRN DAILY PRN MC SEE COMMENTS; Start 01/31/20 at 16:30; Stop 02/02/20 at 16:29 Sodium Chloride 1,000 ml @ 1,000 mls/hr 1X ONCE IV Last administered on 01/31/20at 17:51; Start 01/31/20 at 17:30; Stop 01/31/20 at 18:29; Status DC Doxycycline Hyclate 100 mg/ Dextrose 100 ml @ 50 mls/hr 1X ONCE IV Last administered on 01/31/20at 17:58; Start 01/31/20 at 18:00; Stop 01/31/20 at 19:59; Status DC Methylprednisolone Sodium Succinate (SOLU-Medrol 125MG VIAL) 125 mg 1X ONCE IV Last administered on 01/31/20at 17:53; Start 01/31/20 at 17:30; Stop 01/31/20 at 17:33; Status DC Ondansetron HCl (Zofran) 4 mg PRN Q8HRS PRN IV NAUSEA/VOMITING; Start 01/31/20 at 18:00; Stop 02/01/20 at 17:59 Active Scripts Active Prednisone 20 Mg Tablet 1 Tab PO DAILY 9 Days take 3 tabs daily for 3 days then 2 tabs daily for 3 days then 1 tab daily for 3 days. Levaquin (Levofloxacin) 500 Mg Tablet 1 Tab PO DAILY 4 Days Polyethylene Glycol 3350 17 Gm Powd.pack 17 Gm PO DAILY 30 Days [place] 5-325 Tablet (Acetaminophen/Hydrocodone Bitart) 1 Each Tablet 1 Tab PO PRN Q6HRS PRN 30 Days Duoneb 0.5-3(2.5) Mg/3 Ml (Albuterol/Ipratropium) 3 Ml Ampul.neb 3 Ml NEB QID 30 Days Reported Fluticasone Propionate Nasal [place] (Fluticasone Propionate) 16 Gm [place].susp 2 [place] NS DAILY Ursodiol 300 Mg Capsule 300 Mg PO BID Spiriva (Tiotropium [place]) 18 Mcg Cap.w.dev 2 Inh IH DAILY Hydrochlorothiazide Tablet (Hydrochlorothiazide) 12.5 Mg Tablet 12.5 Mg PO DAILY Cymbalta (Duloxetine Hcl) 30 Mg Capsule.dr 30 Mg PO DAILY Advair 500-50 Diskus (Fluticasone/Salmeterol) 1 Each Disk.w.dev 1 Inh IH BID Trazodone Hcl 100 Mg Tablet 100 Mg PO HS Lyrica (Pregabalin) 150 Mg Capsule 150 Mg PO BID 30 Days Tamsulosin Hcl 0.4 Mg Cap.er.24h 0.4 Mg PO HS Spironolactone 50 Mg Tablet 2 Tab PO DAILY Super B Complex (Vitamin B Complex & Vit C No.4) 150 Mg Tablet 150 Mg PO DAILY Aricept (Donepezil Hcl) 5 Mg Tablet 5 Mg PO HS Allergies Allergies: Coded Allergies: codeine (Verified Adverse Reaction, Intermediate, 07/13/18) constipated ROS General: YES: Chills, Fatigue, Malaise PSYCHOLOGICAL ROS: YES: Sleep disturbances Eyes: No Blurry vision, No Decreased vision, No Double vision, No Dry eyes, No Excessive tearing, No Eye Pain, No Itchy Eyes, No Loss of vision, No Photophobia, No Scotomata, No Uses contacts, No Uses glasses, No Other HEENT: No: Heacaches, Visual Changes, Hearing change, Nasal congestion, Nasal discharge, Oral lesions, Sinus pain, Sore Throat, Epistaxis, Sneezing, Snoring, Tinnitus, Vertigo, Vocal changes, Other Respiratory: YES: Cough, Shortness of breath, SOB with excertion; No: Hemoptysis, Orthopnea, Pleuritic Pain, Sputum Changes, Stridor, Tachypnea, Wheezing, Other Cardiovascular: No Chest Pain, No Palpitations, No Orthopnea, No Paroxysmal Noc. Dyspnea, No Edema, No Lt Headedness, No Other Gastrointestinal: No Nausea, No Vomiting, No Abdominal Pain, No Diarrhea, No Constipation, No Melena, No Hematochezia, No Other Musculoskeletal: Yes Joint Pain, Yes Joint Stiffness, Yes Joint Swelling Neurological: Yes Memory Loss, Yes Weakness; No Behavorial Changes, No Bowel/Bladder ControlChng, No Confusion, No Dizziness, No Headaches, No Impaired Coord/balance, No Numbness/Tingling, No Seizures, No Speech Problems, No Tremors, No Visual Changes, No Other Skin: No Dry Skin, No Eczema, No Hair Changes, No Lumps, No Mole Changes, No Mottling, No Nail Changes, No Pruritus, No Rash, No Skin Lesion Changes, No Other, No Acne Physical Exam General: Alert, Cooperative, mild distress, Other (orienrted 2/3) HEENT: Atraumatic Lungs: Clear to auscultation Abdomen: Normal bowel sounds, Soft Extremities: No edema Skin: No significant lesion Neuro: Normal gait, Sensation intact Psych/Mental Status: Mood NL Vitals Vitals Vital Signs Date Time Temp Pulse Resp B/P (MAP) Pulse Ox O2 Delivery O2 Flow Rate FiO2 02/01/20 03:11 96.2 98 24 152/72 (98) 96 Nasal Cannula 3.0 96.2 Labs Labs Laboratory Tests Test 01/31/20 15:41 01/31/20 16:25 01/31/20 16:30 02/01/20 07:47 White Blood Count 16.0 x10^3/uL (4.0-11.0) Red Blood Count 4.93 x10^6/uL (4.30-5.70) Hemoglobin 15.3 g/dL (13.0-17.5) Hematocrit 44.7 % (39.0-53.0) Mean Corpuscular Volume 91 fL (79-100) Mean Corpuscular Hemoglobin 31 pg (25-35) Mean Corpuscular Hemoglobin Concent 34 g/dL (31-37) Red Cell Distribution Width 13.4 % (11.5-14.5) Platelet Count 282 x10^3/uL (140-400) Neutrophils (%) (Auto) 94 % (31-73) Lymphocytes (%) (Auto) 3 % (24-48) Monocytes (%) (Auto) 2 % (0-9) Eosinophils (%) (Auto) 0 % (0-3) Basophils (%) (Auto) 0 % (0-3) Neutrophils # (Auto) 15.0 x10^3/uL (1.8-7.7) Lymphocytes # (Auto) 0.5 x10^3/uL (1.0-4.8) Monocytes # (Auto) 0.4 x10^3/uL (0.0-1.1) Eosinophils # (Auto) 0.0 x10^3/uL (0.0-0.7) Basophils # (Auto) 0.0 x10^3/uL (0.0-0.2) Segmented Neutrophils % 95 % (35-66) Lymphocytes % 2 % (24-48) Monocytes % 3 % (0-10) Platelet Estimate Adequate (ADEQUATE) Large Platelets Present Sodium Level 134 mmol/L (136-145) Potassium Level 5.5 mmol/L (3.5-5.1) Chloride Level 97 mmol/L (98-107) Carbon Dioxide Level 31 mmol/L (21-32) Anion Gap 6 (6-14) Blood Urea Nitrogen 26 mg/dL (8-26) Creatinine 1.3 mg/dL (0.7-1.3) Estimated GFR (Cockcroft-Gault) 64.4 BUN/Creatinine Ratio 20 (6-20) Glucose Level 157 mg/dL (70-99) Calcium Level 9.7 mg/dL (8.5-10.1) Total Bilirubin 0.5 mg/dL (0.2-1.0) Aspartate Amino Transf (AST/SGOT) 23 U/L (15-37) Alanine Aminotransferase (ALT/SGPT) 17 U/L (16-63) Alkaline Phosphatase 76 U/L (46-116) Troponin I Quantitative < 0.017 ng/mL (0.000-0.055) GF-Agt-Y-Type Natriuretic Peptide 38 pg/mL (0-449) Total Protein 8.1 g/dL (6.4-8.2) Albumin 3.9 g/dL (3.4-5.0) Albumin/Globulin Ratio 0.9 (1.0-1.7) Lipase 118 U/L (73-393) Urine Collection Type Unknown Urine Color Yellow Urine Clarity Clear Urine pH 5.0 (<5.0-8.0) Urine Specific [place] 1.015 (1.000-1.030) Urine Protein Negative mg/dL (NEG-TRACE) Urine Glucose (UA) Negative mg/dL (NEG) Urine Ketones (Stick) 15 mg/dL (NEG) Urine Blood Negative (NEG) Urine Nitrite Negative (NEG) Urine Bilirubin Negative (NEG) Urine Urobilinogen Dipstick 0.2 mg/dL (0.2 mg/dL) Urine Leukocyte Esterase Negative (NEG) Urine RBC 0 /HPF (0-2) Urine WBC 5-10 /HPF (0-4) Urine Squamous Epithelial Cells Few /LPF Urine Bacteria Moderate /HPF (0-FEW) Urine Hyaline Casts Moderate /HPF Urine Mucus Mod /LPF O2 Saturation 97 % (92-99) Arterial Blood pH 7.37 (7.35-7.45) Arterial Blood pCO2 at Patient Temp 44 mmHg (35-46) Arterial Blood pO2 at Patient Temp 102 mmHg (65-108) Arterial Blood HCO3 25 mmol/L (21-28) Arterial Blood Base Excess -1 mmol/L (-3-3) Oxyhemoglobin 96.6 % Methemoglobin 0.4 % (0.0-1.9) Carbon Monoxide, Quantitative 0.1 % (0.0-1.9) FiO2 3l nc Glucose (Fingerstick) 131 mg/dL (70-99) Laboratory Tests Test 01/31/20 15:41 01/31/20 16:25 01/31/20 16:30 02/01/20 07:47 White Blood Count 16.0 x10^3/uL (4.0-11.0) Red Blood Count 4.93 x10^6/uL (4.30-5.70) Hemoglobin 15.3 g/dL (13.0-17.5) Hematocrit 44.7 % (39.0-53.0) Mean Corpuscular Volume 91 fL (79-100) Mean Corpuscular Hemoglobin 31 pg (25-35) Mean Corpuscular Hemoglobin Concent 34 g/dL (31-37) Red Cell Distribution Width 13.4 % (11.5-14.5) Platelet Count 282 x10^3/uL (140-400) Neutrophils (%) (Auto) 94 % (31-73) Lymphocytes (%) (Auto) 3 % (24-48) Monocytes (%) (Auto) 2 % (0-9) Eosinophils (%) (Auto) 0 % (0-3) Basophils (%) (Auto) 0 % (0-3) Neutrophils # (Auto) 15.0 x10^3/uL (1.8-7.7) Lymphocytes # (Auto) 0.5 x10^3/uL (1.0-4.8) Monocytes # (Auto) 0.4 x10^3/uL (0.0-1.1) Eosinophils # (Auto) 0.0 x10^3/uL (0.0-0.7) Basophils # (Auto) 0.0 x10^3/uL (0.0-0.2) Segmented Neutrophils % 95 % (35-66) Lymphocytes % 2 % (24-48) Monocytes % 3 % (0-10) Platelet Estimate Adequate (ADEQUATE) Large Platelets Present Sodium Level 134 mmol/L (136-145) Potassium Level 5.5 mmol/L (3.5-5.1) Chloride Level 97 mmol/L (98-107) Carbon Dioxide Level 31 mmol/L (21-32) Anion Gap 6 (6-14) Blood Urea Nitrogen 26 mg/dL (8-26) Creatinine 1.3 mg/dL (0.7-1.3) Estimated GFR (Cockcroft-Gault) 64.4 BUN/Creatinine Ratio 20 (6-20) Glucose Level 157 mg/dL (70-99) Calcium Level 9.7 mg/dL (8.5-10.1) Total Bilirubin 0.5 mg/dL (0.2-1.0) Aspartate Amino Transf (AST/SGOT) 23 U/L (15-37) Alanine Aminotransferase (ALT/SGPT) 17 U/L (16-63) Alkaline Phosphatase 76 U/L (46-116) Troponin I Quantitative < 0.017 ng/mL (0.000-0.055) YZ-Qit-Z-Type Natriuretic Peptide 38 pg/mL (0-449) Total Protein 8.1 g/dL (6.4-8.2) Albumin 3.9 g/dL (3.4-5.0) Albumin/Globulin Ratio 0.9 (1.0-1.7) Lipase 118 U/L (73-393) Urine Collection Type Unknown Urine Color Yellow Urine Clarity Clear Urine pH 5.0 (<5.0-8.0) Urine Specific [place] 1.015 (1.000-1.030) Urine Protein Negative mg/dL (NEG-TRACE) Urine Glucose (UA) Negative mg/dL (NEG) Urine Ketones (Stick) 15 mg/dL (NEG) Urine Blood Negative (NEG) Urine Nitrite Negative (NEG) Urine Bilirubin Negative (NEG) Urine Urobilinogen Dipstick 0.2 mg/dL (0.2 mg/dL) Urine Leukocyte Esterase Negative (NEG) Urine RBC 0 /HPF (0-2) Urine WBC 5-10 /HPF (0-4) Urine Squamous Epithelial Cells Few /LPF Urine Bacteria Moderate /HPF (0-FEW) Urine Hyaline Casts Moderate /HPF Urine Mucus Mod /LPF O2 Saturation 97 % (92-99) Arterial Blood pH 7.37 (7.35-7.45) Arterial Blood pCO2 at Patient Temp 44 mmHg (35-46) Arterial Blood pO2 at Patient Temp 102 mmHg (65-108) Arterial Blood HCO3 25 mmol/L (21-28) Arterial Blood Base Excess -1 mmol/L (-3-3) Oxyhemoglobin 96.6 % Methemoglobin 0.4 % (0.0-1.9) Carbon Monoxide, Quantitative 0.1 % (0.0-1.9) FiO2 3l nc Glucose (Fingerstick) 131 mg/dL (70-99) VTE Prophylaxis Ordered VTE Prophylaxis Devices: No VTE Pharmacological Prophylaxi: Yes Assessment/Plan Assessment/Plan acute hypoxic on chronic hypercarbic respiratory failure, admit, steroids, nebs, abx, PULM consult, admitted to COVID-19 unit, PUI, full PPE, loveonx, proph SEPSIS acute on chronic pain, neuropathic pain, new joint and muscle pain dementia, cont current, sundown possible hyperkalemia, unk. will give IV lfuid weakness chronic neuropathic pain, admitted Justicifation of Admission Dx: Justifications for Admission: Justification of Admission Dx: Yes Acute COPD Exacerbation: Acute COPD Exacerbation LILLIAN OGLESBY MD Feb 01, 2020 08:24
[2020-02-01] MEDS ORDERED: HYDROcodone/APAP 5/325MG 1 TAB TABLET PO PRN (08:30)
[2020-02-01] MEDS ORDERED: NON FORMULARY ITEM (Fluticasone/Salmeterol (Advair 500-50 Diskus) 1 INH) IH SCH (09:00)
[2020-02-01] MEDS ORDERED: IPRATRPIUM/ALBUTEROL 0.5/2.5MG 3 ML NEBU. NEB SCH (09:00)
[2020-02-01] MEDS ORDERED: predniSONE 20 MG TABLET PO SCH (09:00)
[2020-02-01] MEDS: PREGABALIN 75 MG CAPSULE PO SCH ×3 (09:00→21:52)
[2020-02-01] MEDS ORDERED: NON FORMULARY ITEM (Tiotropium Bromide (Spiriva) 2 INH) IH SCH (09:00)
[2020-02-01] MEDS: IV DEXTROSE 5 %-0.45 % NACL 1,000 ML IV SCH ×2 (10:23→20:51)
[2020-02-01] MEDS: ENOXAPARIN 40 MG/0.4 ML SYRINGE. SQ SCH ×2 (10:23→21:52)
[2020-02-01] MEDS: URSODIOL 300 MG CAPSULE. PO SCH ×2 (10:25→21:53)
[2020-02-01] MEDS: FLUTICASONE 50MCG/NASAL SPRAY 16GM BOTTLE. NS SCH (10:25)
[2020-02-01] MEDS: VITAMIN B COMPLEX TABLET. PO SCH (10:26)
[2020-02-01] MEDS: POLYETHYLENE GLYCOL 3350 17 GM PACKET. PO SCH (10:26)
[2020-02-01] MEDS: predniSONE 20 MG TABLET PO SCH (10:27)
[2020-02-01] MEDS: DULoxetine HCL 30 MG CAPSULE.DR PO SCH (10:27)
[2020-02-01] MEDS: SPIRONOLACTONE 25 MG TABLET PO SCH (10:27)
[2020-02-01] MEDS: DOXYCYCLINE HYCLATE 100 MG TABLET PO SCH ×2 (10:27→21:52)
[2020-02-01 10:41] VITALS: BP 132/74
[2020-02-01] MEDS ORDERED: levOFLOXacin PER PHARMACY. MC PRN (11:30)
--- NOTE | 2020-02-01 11:42 | CONS ---
DATE OF CONSULTATION: PULMONARY CONSULTATION ATTENDING PHYSICIAN: Dr. Vazquez. REASON FOR CONSULTATION: Lung nodules and dyspnea. HISTORY OF PRESENT ILLNESS: The patient 79-year-old male who was seen at Dr. Rich's office for cough and some shortness of breath. He is not the best historian. He says he is on home oxygen at 3 liters all the time. He was noted to be tachypneic in the ER. He was brought into the hospital. The patient has history of chronic obstructive pulmonary disease. He had a CT of the abdomen and pelvis for abdominal pain. Lower section of the lungs were reviewed and he had linear opacities in the lower lobes, likely scarring and atelectasis. There was bronchiectasis involving the right lower lobe and along with some nodular opacity 1.1 cm in size. The previously seen pleural based right lower lobe mass is resolved. I have been asked to see him for further evaluation. He is under COVID isolation. PAST MEDICAL HISTORY: Significant for history of arthritis, COPD, right inguinal hernia and neuropathy, diabetes, dyslipidemia and hypertension, COPD and some dementia. PAST SURGICAL HISTORY: Cholecystectomy. ALLERGIES: CODEINE. MEDICATIONS: Reviewed as listed in the MRAD including Lovenox for DVT prophylaxis, DuoNebs and received Levaquin and IV steroids in the ER. REVIEW OF SYSTEMS: Limited, but pertinent positives discussed in my history of present illness, otherwise noncontributory. All systems that were negative were reviewed as well. FAMILY HISTORY: Noncontributory to lungs. PHYSICAL EXAMINATION: VITAL SIGNS: Reviewed. He is afebrile, pulse ox 97% on 1.5 liters. He was initially on 3 liters. NECK: Supple. LUNGS: With diminished breath sounds at the bases. CARDIOVASCULAR: With a regular rate. ABDOMEN: Soft. EXTREMITIES: With no pitting edema. LABORATORY DATA: Reviewed. ABGs with a pH of 7.37, pCO2 of 44 and a pO2 of 102 on 3 liters, nasal cannula. BUN is 26, creatinine 1.3. White cell count 16.0 IMPRESSION: 1. Dyspnea with chronic hypoxic respiratory failure in a patient with chronic obstructive pulmonary disease. Etiology likely related to acute exacerbation of chronic obstructive pulmonary disease and acute bronchitis. 2. Abnormal CT abdomen and pelvis with some extensive bronchiectasis along with nonspecific nodule 1.1 cm in size in the right lower lobe posteromedially. This could be inflammatory and it would be reasonable to follow up another CT in 3 months. Previously seen right lower lobe pleural based mass is resolved and was likely inflammatory. 3. Underlying dementia. 4. Mild chronic kidney disease. RECOMMENDATIONS: 1. Discussed with RN. At this time, we will continue present oxygen at 3 liters. 2. Continue antibiotics. 3. Bronchodilators. 4. We will obtain full CT of the chest to rule out any other nodules. RILEY MICHELLE MD DR: NYASIA/malka JOB#: [id number] / [id number]
[2020-02-01] MEDS: IPRATROPIUM/ALBUTEROL 20/100mcg/INH INHALER. INH SCH ×3 (13:10→21:51)
[2020-02-01 15:00] VITALS: BP 139/72
--- NOTE | 2020-02-01 15:56 | NUR ---
SW following. Reviewed chart and spoke with RN. Pt from home with . Pt on 1.5l 02. Pt has home 02 per his . Pt consulted by pulmonology. Pt is COVID pending. Pt on an ADA diet. Pt's is requesting HH orders at discharge. Pt has used [facility] in the past and SW phoned and faxed and initial referral, , (fax). Pt's stated pt also needs a new nebulizer as his is broken. SW requested orders from Dr. Vazquez. Patient Choice of Vendor form completed. SW to follow.
--- NOTE | 2020-02-01 17:32 | RAD ---
Exam: CT of chest without contrast INDICATION: Lung nodule TECHNIQUE: Sequential axial images through the chest obtained without IV contrast. Sagittal and coronal reformatted images were reconstructed from the axial data and reviewed. Comparisons: 01/31/2020 FINDINGS: Visualized portions of the thyroid are unremarkable. No enlarged mediastinal lymph nodes are identified. Heart size is normal. Mild coronary artery calcifications. Thoracic aorta has a normal course and caliber. Pulmonary artery is not enlarged. There is mucous plugging noted within the right lower lobe. Bronchiectatic changes noted lower lobes. There is paraseptal emphysematous change and centrilobular emphysematous change noted predominantly at the upper lungs. No consolidation or pneumothorax. No suspicious lung nodules are identified. No pleural effusion or thickening. Visualized upper abdomen is unremarkable. No suspicious osseous lesions or acute fractures. IMPRESSION: 1. Persistent linear bandlike opacity at the right posterior lung, may relate to a nodule versus atelectasis. Short-term follow-up imaging following resolution of the mucous plugging to reassess is recommended. 2. Mucous plugging and bronchiectatic changes noted predominantly at the right lower lobe. Exposure: One or more of the following in the visualized dose reduction techniques were utilized for this examination: 1. Automated exposure control 2. Adjustment of the MA and/or KV according to patient size 3. Use of iterative of reconstructive technique Electronically signed by: Min Domingo MD (02/01/2020 5:29 PM) [id number]
[2020-02-01] MEDS: BUDESONIDE 0.5 MG/2 ML NEBU. NEB SCH (18:39)
[2020-02-01 19:00] VITALS: BP 160/91
--- NOTE | 2020-02-01 20:57 | NUR ---
Dr. Daugherty was paged this evening about patient's negative covid status. stated it was okay to transfer patient to a tele floor. This was passed on to charge nurse and nursing cheese production supervisor. This RN gave report to YOUSIF Ortiz who is resuming care.
[2020-02-01] MEDS ORDERED: DONEPEZIL HCL 5 MG TABLET. PO SCH (21:00)
[2020-02-01] MEDS ORDERED: TAMSULOSIN 0.4 MG CAP.ER.24H. PO SCH (21:00)
[2020-02-01] MEDS ORDERED: traZODone 100 MG TABLET. PO SCH (21:00)
[2020-02-01] MEDS: LACTOBACILLUS RHAMNOSUS GG 1 CAPSULE. PO SCH (21:52)
[2020-02-01 23:00] VITALS: BP 157/84
[2020-02-02 03:00] VITALS: BP 146/79
[2020-02-02] MEDS: IV DEXTROSE 5 %-0.45 % NACL 1,000 ML IV SCH ×2 (04:59→15:00)
[2020-02-02 07:30] VITALS: BP 129/73
[2020-02-02] MEDS: BUDESONIDE 0.5 MG/2 ML NEBU. NEB SCH (07:37)
--- NOTE | 2020-02-02 08:40 | PDOC ---
PULMONARY PROGRESS NOTES DATE: 02/02/20 TIME: 08:40 Subjective no soa Vitals Vital Signs Date Time Temp Pulse Resp B/P (MAP) Pulse Ox O2 Delivery O2 Flow Rate FiO2 02/02/20 07:37 97 Nasal Cannula 3.0 02/02/20 03:00 97.6 88 19 146/79 (101) 97.6 General: Alert, No acute distress Lungs: Clear Cardiovascular: S1 Abdomen: Soft Extremities: No Edema Labs Laboratory Tests Test 01/31/20 15:41 01/31/20 16:25 01/31/20 16:30 01/31/20 18:06 White Blood Count 16.0 x10^3/uL (4.0-11.0) Red Blood Count 4.93 x10^6/uL (4.30-5.70) Hemoglobin 15.3 g/dL (13.0-17.5) Hematocrit 44.7 % (39.0-53.0) Mean Corpuscular Volume 91 fL (79-100) Mean Corpuscular Hemoglobin 31 pg (25-35) Mean Corpuscular Hemoglobin Concent 34 g/dL (31-37) Red Cell Distribution Width 13.4 % (11.5-14.5) Platelet Count 282 x10^3/uL (140-400) Neutrophils (%) (Auto) 94 % (31-73) Lymphocytes (%) (Auto) 3 % (24-48) Monocytes (%) (Auto) 2 % (0-9) Eosinophils (%) (Auto) 0 % (0-3) Basophils (%) (Auto) 0 % (0-3) Neutrophils # (Auto) 15.0 x10^3/uL (1.8-7.7) Lymphocytes # (Auto) 0.5 x10^3/uL (1.0-4.8) Monocytes # (Auto) 0.4 x10^3/uL (0.0-1.1) Eosinophils # (Auto) 0.0 x10^3/uL (0.0-0.7) Basophils # (Auto) 0.0 x10^3/uL (0.0-0.2) Segmented Neutrophils % 95 % (35-66) Lymphocytes % 2 % (24-48) Monocytes % 3 % (0-10) Platelet Estimate Adequate (ADEQUATE) Large Platelets Present Sodium Level 134 mmol/L (136-145) Potassium Level 5.5 mmol/L (3.5-5.1) Chloride Level 97 mmol/L (98-107) Carbon Dioxide Level 31 mmol/L (21-32) Anion Gap 6 (6-14) Blood Urea Nitrogen 26 mg/dL (8-26) Creatinine 1.3 mg/dL (0.7-1.3) Estimated GFR (Cockcroft-Gault) 64.4 BUN/Creatinine Ratio 20 (6-20) Glucose Level 157 mg/dL (70-99) Calcium Level 9.7 mg/dL (8.5-10.1) Total Bilirubin 0.5 mg/dL (0.2-1.0) Aspartate Amino Transf (AST/SGOT) 23 U/L (15-37) Alanine Aminotransferase (ALT/SGPT) 17 U/L (16-63) Alkaline Phosphatase 76 U/L (46-116) Troponin I Quantitative < 0.017 ng/mL (0.000-0.055) QW-Xel-B-Type Natriuretic Peptide 38 pg/mL (0-449) Total Protein 8.1 g/dL (6.4-8.2) Albumin 3.9 g/dL (3.4-5.0) Albumin/Globulin Ratio 0.9 (1.0-1.7) Lipase 118 U/L (73-393) Urine Collection Type Unknown Urine Color Yellow Urine Clarity Clear Urine pH 5.0 (<5.0-8.0) Urine Specific [place] 1.015 (1.000-1.030) Urine Protein Negative mg/dL (NEG-TRACE) Urine Glucose (UA) Negative mg/dL (NEG) Urine Ketones (Stick) 15 mg/dL (NEG) Urine Blood Negative (NEG) Urine Nitrite Negative (NEG) Urine Bilirubin Negative (NEG) Urine Urobilinogen Dipstick 0.2 mg/dL (0.2 mg/dL) Urine Leukocyte Esterase Negative (NEG) Urine RBC 0 /HPF (0-2) Urine WBC 5-10 /HPF (0-4) Urine Squamous Epithelial Cells Few /LPF Urine Bacteria Moderate /HPF (0-FEW) Urine Hyaline Casts Moderate /HPF Urine Mucus Mod /LPF O2 Saturation 97 % (92-99) Arterial Blood pH 7.37 (7.35-7.45) Arterial Blood pCO2 at Patient Temp 44 mmHg (35-46) Arterial Blood pO2 at Patient Temp 102 mmHg (65-108) Arterial Blood HCO3 25 mmol/L (21-28) Arterial Blood Base Excess -1 mmol/L (-3-3) Oxyhemoglobin 96.6 % Methemoglobin 0.4 % (0.0-1.9) Carbon Monoxide, Quantitative 0.1 % (0.0-1.9) FiO2 3l nc Coronavirus (PCR) Not detected (Not Detected) Test 02/01/20 07:47 02/02/20 08:36 Glucose (Fingerstick) 131 mg/dL (70-99) 139 mg/dL (70-99) Laboratory Tests Test 02/02/20 08:36 Glucose (Fingerstick) 139 mg/dL (70-99) Medications Active Scripts Medications Dose Route/Sig Max Daily Dose Days Date Category Dose Instructions Prednisone 20 Mg Tablet 1 Tab PO DAILY 9 07/16/18 Rx take 3 tabs daily for 3 days then 2 tabs daily for 3 days then 1 tab daily for 3 days. Levaquin (Levofloxacin) 500 Mg Tablet 1 Tab PO DAILY 4 07/16/18 Rx Polyethylene Glycol 3350 17 Gm Powd.pack 17 Gm PO DAILY 30 07/16/18 Rx [place] 5-325 Tablet (Acetaminophen/Hydrocodone Bitart) 1 Each Tablet 1 Tab PO PRN Q6HRS PRN 30 07/14/18 Rx Duoneb 0.5-3(2.5) Mg/3 Ml (Albuterol/Ipratropium) 3 Ml Ampul.neb 3 Ml NEB QID 30 07/14/18 Rx Fluticasone Propionate Nasal [place] (Fluticasone Propionate) 16 Gm [place].susp 2 [place] NS DAILY 07/14/18 Reported Ursodiol 300 Mg Capsule 300 Mg PO BID 07/14/18 Reported Spiriva (Tiotropium [place]) 18 Mcg Cap.w.dev 2 Inh IH DAILY 07/14/18 Reported Hydrochlorothiazide Tablet (Hydrochlorothiazide) 12.5 Mg Tablet 12.5 Mg PO DAILY 06/22/18 Reported Cymbalta (Duloxetine Hcl) 30 Mg Capsule.dr 30 Mg PO DAILY 02/11/18 Reported Advair 500-50 Diskus (Fluticasone/Salmeterol) 1 Each Disk.w.dev 1 Inh IH BID 02/11/18 Reported Trazodone Hcl 100 Mg Tablet 100 Mg PO HS 02/11/18 Reported Lyrica (Pregabalin) 150 Mg Capsule 150 Mg PO BID 30 02/11/18 Reported Tamsulosin Hcl 0.4 Mg Cap.er.24h 0.4 Mg PO HS 02/11/18 Reported Spironolactone 50 Mg Tablet 2 Tab PO DAILY 02/10/18 Reported Super B Complex (Vitamin B Complex & Vit C No.4) 150 Mg Tablet 150 Mg PO DAILY 01/05/18 Reported Aricept (Donepezil Hcl) 5 Mg Tablet 5 Mg PO HS 09/10/16 Reported Impression . IMPRESSION: 1. Dyspnea with chronic hypoxic respiratory failure in a patient with chronic obstructive pulmonary disease. Etiology likely related to acute exacerbation of chronic obstructive pulmonary disease and acute bronchitis. 2. Abnormal CT abdomen and pelvis with some extensive bronchiectasis along with nonspecific nodule 1.1 cm in size in the right lower lobe posteromedially. This could be inflammatory and it would be reasonable to follow up another CT in 3 months. Previously seen right lower lobe pleural based mass is resolved and was likely inflammatory. 3. Underlying dementia. 4. Mild chronic kidney disease. CT CHEST IMPRESSION: 1. Persistent linear bandlike opacity at the right posterior lung, may relate to a nodule versus atelectasis. Short-term follow-up imaging following resolution of the mucous plugging to reassess is recommended. 2. Mucous plugging and bronchiectatic changes noted predominantly at the right lower lobe. Plan . RECOMMENDATIONS: 1. Discussed with RN. At this time, we will continue present oxygen at 2 liters. 2. Continue antibiotics. 3. Bronchodilators. 4. CT of the chest reviewed 5. Continue Abx 6. PO steroid taper RILEY MICHELLE MD Feb 02, 2020 08:40
[2020-02-02] MEDS: SPIRONOLACTONE 25 MG TABLET PO SCH (09:00)
[2020-02-02] MEDS: POLYETHYLENE GLYCOL 3350 17 GM PACKET. PO SCH (09:00)
[2020-02-02] MEDS: FLUTICASONE 50MCG/NASAL SPRAY 16GM BOTTLE. NS SCH (10:07)
[2020-02-02] MEDS: IPRATROPIUM/ALBUTEROL 20/100mcg/INH INHALER. INH SCH ×3 (10:07→16:39)
[2020-02-02] MEDS: VITAMIN B COMPLEX TABLET. PO SCH (10:07)
[2020-02-02] MEDS: PREGABALIN 75 MG CAPSULE PO SCH (10:08)
[2020-02-02] MEDS: predniSONE 20 MG TABLET PO SCH (10:08)
[2020-02-02] MEDS: DOXYCYCLINE HYCLATE 100 MG TABLET PO SCH (10:08)
[2020-02-02] MEDS: LACTOBACILLUS RHAMNOSUS GG 1 CAPSULE. PO SCH (10:08)
[2020-02-02] MEDS: DULoxetine HCL 30 MG CAPSULE.DR PO SCH (10:08)
[2020-02-02] MEDS: URSODIOL 300 MG CAPSULE. PO SCH (10:08)
[2020-02-02] MEDS: ENOXAPARIN 40 MG/0.4 ML SYRINGE. SQ SCH (10:10)
--- NOTE | 2020-02-02 10:18 | PDOC ---
PROGRESS NOTES Date of Service: DATE: 02/02/20 TIME: 10:18 Chief Complaint Chief Complaint VTE Prophylaxis Ordered VTE Prophylaxis Devices: No VTE Pharmacological Prophylaxi: Yes DISCHARGE DX Assessment/Plan acute hypoxic on chronic hypercarbic respiratory failure, admit, steroids, nebs, abx, PULM consult, admitted to COVID-19 unit, NEG , loveonx, proph acute on chronic pain, neuropathic pain, new joint and muscle pain dementia, cont current, possible hyperkalemia, unk. will give IV lfuid weakness chronic neuropathic pain, admitted OK WITH PULM FOR d/c per rn po antibiotics and home health d/c planning 36 min Justicifation of Admission Dx: Justicifation of Admission Dx: Justifications for Admission: Justification of Admission Dx: Yes Acute COPD Exacerbation: Acute COPD Exacerbation History of Present Illness History of Present Illness History of Present Illness History of Present Illness Mr. Ortega, is a 79 year old admit last night, was at Dr. Rich's office for this cough and increased shortness of breath and was sent here for evaluation. chronic hypxoia, then acute resp change yesterday, tachypneic to 50 range in ER. some recent shortness of breath for 2 weeks he is had increased shortness of breath and left-sided chest pains. He does have COPD, Patient is able to speak in full sentences. is not hungry for breakfast, too weak to get his orange juice open, I had to assist He rates his overall pain 5 out of 10, new pain different from his chronic pain. Past Medical History Past Medical History prior pneumonia, arthritis, right inguinal hernia, neuropathy, diabetes, high cholesterol, hypertension, cholecystectomy. Cardiovascular: HTN Pulmonary: COPD CENTRAL NERVOUS SYSTEM: Dementia GI: No pertinent hx Family History Family History: No Significant Social History Smoke: No ALCOHOL: none Vitals Vitals Vital Signs Date Time Temp Pulse Resp B/P (MAP) Pulse Ox O2 Delivery O2 Flow Rate FiO2 02/02/20 07:37 97 Nasal Cannula 3.0 02/02/20 07:30 98.1 88 18 129/73 (91) 98.1 Physical Exam General: Alert, Oriented X3, Cooperative, No acute distress, Other (orienrted 2/3) Heart: Regular rate Lungs: Clear Abdomen: Normal bowel sounds, Soft Extremities: No cyanosis, No edema Skin: No significant lesion Labs LABS Laboratory Tests Test 02/02/20 08:36 Glucose (Fingerstick) 139 mg/dL (70-99) Assessment and Plan Assessmemt and Plan Problems Medical Problems: (1) Person under investigation for COVID-19 Status: Acute Comment Review of Relevant I have reviewed the following items lucretia (where applicable) has been applied. Labs Laboratory Tests Test 01/31/20 15:41 01/31/20 16:25 01/31/20 16:30 01/31/20 18:06 White Blood Count 16.0 x10^3/uL (4.0-11.0) Red Blood Count 4.93 x10^6/uL (4.30-5.70) Hemoglobin 15.3 g/dL (13.0-17.5) Hematocrit 44.7 % (39.0-53.0) Mean Corpuscular Volume 91 fL (79-100) Mean Corpuscular Hemoglobin 31 pg (25-35) Mean Corpuscular Hemoglobin Concent 34 g/dL (31-37) Red Cell Distribution Width 13.4 % (11.5-14.5) Platelet Count 282 x10^3/uL (140-400) Neutrophils (%) (Auto) 94 % (31-73) Lymphocytes (%) (Auto) 3 % (24-48) Monocytes (%) (Auto) 2 % (0-9) Eosinophils (%) (Auto) 0 % (0-3) Basophils (%) (Auto) 0 % (0-3) Neutrophils # (Auto) 15.0 x10^3/uL (1.8-7.7) Lymphocytes # (Auto) 0.5 x10^3/uL (1.0-4.8) Monocytes # (Auto) 0.4 x10^3/uL (0.0-1.1) Eosinophils # (Auto) 0.0 x10^3/uL (0.0-0.7) Basophils # (Auto) 0.0 x10^3/uL (0.0-0.2) Segmented Neutrophils % 95 % (35-66) Lymphocytes % 2 % (24-48) Monocytes % 3 % (0-10) Platelet Estimate Adequate (ADEQUATE) Large Platelets Present Sodium Level 134 mmol/L (136-145) Potassium Level 5.5 mmol/L (3.5-5.1) Chloride Level 97 mmol/L (98-107) Carbon Dioxide Level 31 mmol/L (21-32) Anion Gap 6 (6-14) Blood Urea Nitrogen 26 mg/dL (8-26) Creatinine 1.3 mg/dL (0.7-1.3) Estimated GFR (Cockcroft-Gault) 64.4 BUN/Creatinine Ratio 20 (6-20) Glucose Level 157 mg/dL (70-99) Calcium Level 9.7 mg/dL (8.5-10.1) Total Bilirubin 0.5 mg/dL (0.2-1.0) Aspartate Amino Transf (AST/SGOT) 23 U/L (15-37) Alanine Aminotransferase (ALT/SGPT) 17 U/L (16-63) Alkaline Phosphatase 76 U/L (46-116) Troponin I Quantitative < 0.017 ng/mL (0.000-0.055) UV-Zmz-I-Type Natriuretic Peptide 38 pg/mL (0-449) Total Protein 8.1 g/dL (6.4-8.2) Albumin 3.9 g/dL (3.4-5.0) Albumin/Globulin Ratio 0.9 (1.0-1.7) Lipase 118 U/L (73-393) Urine Collection Type Unknown Urine Color Yellow Urine Clarity Clear Urine pH 5.0 (<5.0-8.0) Urine Specific [place] 1.015 (1.000-1.030) Urine Protein Negative mg/dL (NEG-TRACE) Urine Glucose (UA) Negative mg/dL (NEG) Urine Ketones (Stick) 15 mg/dL (NEG) Urine Blood Negative (NEG) Urine Nitrite Negative (NEG) Urine Bilirubin Negative (NEG) Urine Urobilinogen Dipstick 0.2 mg/dL (0.2 mg/dL) Urine Leukocyte Esterase Negative (NEG) Urine RBC 0 /HPF (0-2) Urine WBC 5-10 /HPF (0-4) Urine Squamous Epithelial Cells Few /LPF Urine Bacteria Moderate /HPF (0-FEW) Urine Hyaline Casts Moderate /HPF Urine Mucus Mod /LPF O2 Saturation 97 % (92-99) Arterial Blood pH 7.37 (7.35-7.45) Arterial Blood pCO2 at Patient Temp 44 mmHg (35-46) Arterial Blood pO2 at Patient Temp 102 mmHg (65-108) Arterial Blood HCO3 25 mmol/L (21-28) Arterial Blood Base Excess -1 mmol/L (-3-3) Oxyhemoglobin 96.6 % Methemoglobin 0.4 % (0.0-1.9) Carbon Monoxide, Quantitative 0.1 % (0.0-1.9) FiO2 3l nc Coronavirus (PCR) Not detected (Not Detected) Test 02/01/20 07:47 02/02/20 08:36 Glucose (Fingerstick) 131 mg/dL (70-99) 139 mg/dL (70-99) Laboratory Tests Test 02/02/20 08:36 Glucose (Fingerstick) 139 mg/dL (70-99) Microbiology 01/31/20 Urine Culture - Final, Complete Medications Current Medications Albuterol/ Ipratropium (Duoneb) 3 ml 1X ONCE NEB Last administered on 01/31/20at 16:34; Start 01/31/20 at 15:30; Stop 01/31/20 at 15:33; Status DC Iohexol (Omnipaque 300 Mg/ml) 75 ml 1X ONCE IV Last administered on 01/31/20at 16:59; Start 01/31/20 at 16:30; Stop 01/31/20 at 16:31; Status DC Info (CONTRAST GIVEN -- Rx MONITORING) 1 each PRN DAILY PRN MC SEE COMMENTS; Start 01/31/20 at 16:30; Stop 02/02/20 at 16:29 Sodium Chloride 1,000 ml @ 1,000 mls/hr 1X ONCE IV Last administered on 01/31/20at 17:51; Start 01/31/20 at 17:30; Stop 01/31/20 at 18:29; Status DC Doxycycline Hyclate 100 mg/ Dextrose 100 ml @ 50 mls/hr 1X ONCE IV Last administered on 01/31/20at 17:58; Start 01/31/20 at 18:00; Stop 01/31/20 at 19:59; Status DC Methylprednisolone Sodium Succinate (SOLU-Medrol 125MG VIAL) 125 mg 1X ONCE IV Last administered on 01/31/20at 17:53; Start 01/31/20 at 17:30; Stop 01/31/20 at 17:33; Status DC Ondansetron HCl (Zofran) 4 mg PRN Q8HRS PRN IV NAUSEA/VOMITING; Start 01/31/20 at 18:00; Stop 02/01/20 at 17:59; Status DC Donepezil HCl (Aricept) 5 mg HS PO Last administered on 02/01/20at 21:52; Start 02/01/20 at 21:00 Duloxetine HCl (Cymbalta) 30 mg DAILY PO Last administered on 02/02/20at 10:08; Start 02/01/20 at 09:00 Fluticasone Propionate (Flonase) 2 spray DAILY NS Last administered on 02/02/20at 10:07; Start 02/01/20 at 09:00 Acetaminophen/ Hydrocodone Bitart (Lortab 5/325) 1 tab PRN Q6HRS PRN PO PAIN; Start 02/01/20 at 08:30 Albuterol/ Ipratropium (Duoneb) 3 ml RTQID NEB ; Start 02/01/20 at 09:00; Stop 02/01/20 at 08:43; Status DC Levofloxacin (Levaquin) 500 mg DAILY PO ; Start 02/01/20 at 09:00; Stop 02/01/20 at 08:41; Status DC Polyethylene Glycol (miraLAX PACKET) 17 gm DAILY PO Last administered on 02/01/20at 10:26; Start 02/01/20 at 09:00 Prednisone (Prednisone) 20 mg DAILY PO ; Start 02/01/20 at 09:00; Stop 02/01/20 at 08:41; Status DC Tamsulosin HCl (Flomax) 0.4 mg HS PO Last administered on 02/01/20at 21:52; Start 02/01/20 at 21:00 Trazodone HCl (Desyrel) 100 mg HS PO Last administered on 02/01/20at 21:52; Start 02/01/20 at 21:00 Ursodiol (Actigall) 300 mg BID PO Last administered on 02/02/20at 10:08; Start 02/01/20 at 09:00 Non-Formulary Medication (Fluticasone/ Salmeterol (Advair 500-50 Diskus)) 1 inh BID IH ; Start 02/01/20 at 09:00; Status UNV Pregabalin (Lyrica) 150 mg BID PO Last administered on 02/02/20 10:08; Start 02/01/20 at 08:45 Spironolactone (Aldactone) 100 mg DAILY PO Last administered on 02/01/20at 10: 27; Start 02/01/20 at 09:00 Non-Formulary Medication (Tiotropium [place] (Spiriva)) 2 inh DAILY IH ; Start 02/01/20 at 09:00; Status UNV Vitamin B Complex (Riley B) 1 tab DAILY PO Last administered on 02/02/20at 10:07; Start 02/01/20 at 09:00 Enoxaparin Sodium (Lovenox Per Pharmacy Prophylaxis Dosing) 1 each PRN DAILY PRN MC SEE COMMENTS; Start 02/01/20 at 08:45 Dextrose/Sodium Chloride 1,000 ml @ 100 mls/hr Q10H IV Last administered on 02/02/20at 04:59; Start 02/01/20 at 09:00 Prednisone (Prednisone) 60 mg DAILY PO Last administered on 02/02/20 10:08; Start 02/01/20 at 09:00 Doxycycline Hyclate (Vibra-Tab) 100 mg BID PO Last administered on 02/02/20 10:08; Start 02/01/20 at 09:00 Enoxaparin Sodium (Lovenox 40mg Syringe) 40 mg BID SQ Last administered on 02/02/20 10:10; Start 02/01/20 at 09:00 Albuterol/ Ipratropium (Combivent Respimat 20-100 Mcg) 1 puff RTQID INH Last administered on 02/02/20 10:07; Start 02/01/20 at 12:00 Budesonide (Pulmicort) 0.5 mg RTBID NEB Last administered on 02/02/20at 07:37; Start 02/01/20 at 20:00 Lactobacillus Rhamnosus (Culturelle) 1 cap BID PO Last administered on 02/02/20 10:08; Start 02/01/20 at 21:00 Levofloxacin/ Dextrose (Levaquin Per Pharmacy) 1 each PRN DAILY PRN MC SEE COMMENTS; Start 02/01/20 at 11:30 Levofloxacin/ Dextrose 100 ml @ 100 mls/hr Q24H IV Last administered on 02/01/20at 13:10; Start 02/01/20 at 12:00 Active Scripts Active Prednisone 20 Mg Tablet 1 Tab PO DAILY 9 Days take 3 tabs daily for 3 days then 2 tabs daily for 3 days then 1 tab daily for 3 days. Levaquin (Levofloxacin) 500 Mg Tablet 1 Tab PO DAILY 4 Days Polyethylene Glycol 3350 17 Gm Powd.pack 17 Gm PO DAILY 30 Days [place] 5-325 Tablet (Acetaminophen/Hydrocodone Bitart) 1 Each Tablet 1 Tab PO PRN Q6HRS PRN 30 Days Duoneb 0.5-3(2.5) Mg/3 Ml (Albuterol/Ipratropium) 3 Ml Ampul.neb 3 Ml NEB QID 30 Days Reported Fluticasone Propionate Nasal [place] (Fluticasone Propionate) 16 Gm [place].susp 2 [place] NS DAILY Ursodiol 300 Mg Capsule 300 Mg PO BID Spiriva (Tiotropium [place]) 18 Mcg Cap.w.dev 2 Inh IH DAILY Hydrochlorothiazide Tablet (Hydrochlorothiazide) 12.5 Mg Tablet 12.5 Mg PO DAILY Cymbalta (Duloxetine Hcl) 30 Mg Capsule.dr 30 Mg PO DAILY Advair 500-50 Diskus (Fluticasone/Salmeterol) 1 Each Disk.w.dev 1 Inh IH BID Trazodone Hcl 100 Mg Tablet 100 Mg PO HS Lyrica (Pregabalin) 150 Mg Capsule 150 Mg PO BID 30 Days Tamsulosin Hcl 0.4 Mg Cap.er.24h 0.4 Mg PO HS Spironolactone 50 Mg Tablet 2 Tab PO DAILY Super B Complex (Vitamin B Complex & Vit C No.4) 150 Mg Tablet 150 Mg PO DAILY Aricept (Donepezil Hcl) 5 Mg Tablet 5 Mg PO HS Vitals/I & O Vital Sign - Last 24 Hours 02/01/20 02/01/20 02/01/20 02/01/20 10:41 15:00 19:00 20:00 Temp 97.7 97.8 97.7 97.7 97.8 97.7 Pulse 84 80 94 Resp 17 17 17 B/P (MAP) 132/74 (93) 139/72 (94) 160/91 (114) Pulse Ox 97 98 99 O2 Delivery Nasal Cannula Nasal Cannula Nasal Cannula Nasal Cannula O2 Flow Rate 1.5 1.5 1.5 3.0 02/01/20 02/02/20 02/02/20 02/02/20 23:00 03:00 07:30 07:37 Temp 97.9 97.6 98.1 97.9 97.6 98.1 Pulse 84 88 88 Resp 17 19 18 B/P (MAP) 157/84 (108) 146/79 (101) 129/73 (91) Pulse Ox 96 95 98 97 O2 Delivery Nasal Cannula Room Air Nasal Cannula Nasal Cannula O2 Flow Rate 1.5 3.0 3.0 Intake and Output 02/01/20 02/01/20 02/02/20 15:00 23:00 07:00 Intake Total 600 ml 300 ml 240 ml Balance 600 ml 300 ml 240 ml Justicifation of Admission Dx: Justifications for Admission: Justification of Admission Dx: Yes Acute COPD Exacerbation: Acute COPD Exacerbation ELIZABETH VAZQUEZ MD Feb 02, 2020 10:18
[2020-02-02 11:00] VITALS: BP 127/69
--- NOTE | 2020-02-02 14:17 | PDOC3 ---
Discharge Summary Date of Admission: Feb 01, 2020 Date of Discharge: Feb 02, 2020 Follow-Up: 1-2 days Admitting Diagnosis comment: DISCHARGE DX Assessment/Plan acute hypoxic on chronic hypercarbic respiratory failure, admit, steroids, nebs, abx, PULM consult, admitted to COVID-19 unit, NEG , loveonx, proph acute on chronic pain, neuropathic pain, new joint and muscle pain dementia, cont current, possible hyperkalemia, unk. will give IV lfuid weakness chronic neuropathic pain, admitted OK WITH PULM FOR d/c per rn po antibiotics and home health d/c planning 36 min Justicifation of Admission Dx: Justicifation of Admission Dx: Justifications for Admission: Justification of Admission Dx: Yes Acute COPD Exacerbation: Acute COPD Exacerbation History of Present Illness History of Present Illness History of Present Illness History of Present Illness Mr. Ortega, is a 79 year old admit last night, was at Dr. Rich's office for this cough and increased shortness of breath and was sent here for evaluation. chronic hypxoia, then acute resp change yesterday, tachypneic to 50 range in ER. some recent shortness of breath for 2 weeks he is had increased shortness of breath and left-sided chest pains. He does have COPD, Patient is able to speak in full sentences. is not hungry for breakfast, too weak to get his orange juice open, I had to assist He rates his overall pain 5 out of 10, new pain different from his chronic pain. Past Medical History Past Medical History prior pneumonia, arthritis, right inguinal hernia, neuropathy, diabetes, high cholesterol, hypertension, cholecystectomy. Cardiovascular: HTN Pulmonary: COPD CENTRAL NERVOUS SYSTEM: Dementia GI: No pertinent hx Family History Family History: No Significant Social History Smoke: No ALCOHOL: none Vitals Vitals Vital Signs Date Time Temp Pulse Resp B/P (MAP) Pulse Ox O2 Delivery O2 Flow Rate FiO2 02/02/20 07:37 97 Nasal Cannula 3.0 02/02/20 07:30 98.1 88 18 129/73 (91) 98.1 Physical Exam General: Alert, Oriented X3, Cooperative, No acute distress, Other (orienrted 2/3) Heart: Regular rate Lungs: Clear Abdomen: Normal bowel sounds, Soft Extremities: No cyanosis, No edema Skin: No significant lesion FINAL DIAGNOSIS Problems Medical Problems: (1) Person under investigation for COVID-19 Status: Acute Brief Hospital Course Mr. Ortega is a 79 old [sex] who presented with [ ] Discharge Medications Current Medications Albuterol/ Ipratropium (Duoneb) 3 ml 1X ONCE NEB Last administered on 01/31/20at 16:34; Start 01/31/20 at 15:30; Stop 01/31/20 at 15:33; Status DC Iohexol (Omnipaque 300 Mg/ml) 75 ml 1X ONCE IV Last administered on 01/31/20at 16:59; Start 01/31/20 at 16:30; Stop 01/31/20 at 16:31; Status DC Info (CONTRAST GIVEN -- Rx MONITORING) 1 each PRN DAILY PRN MC SEE COMMENTS; Start 01/31/20 at 16:30; Stop 02/02/20 at 16:29 Sodium Chloride 1,000 ml @ 1,000 mls/hr 1X ONCE IV Last administered on 01/31/20at 17:51; Start 01/31/20 at 17:30; Stop 01/31/20 at 18:29; Status DC Doxycycline Hyclate 100 mg/ Dextrose 100 ml @ 50 mls/hr 1X ONCE IV Last administered on 01/31/20at 17:58; Start 01/31/20 at 18:00; Stop 01/31/20 at 19:59; Status DC Methylprednisolone Sodium Succinate (SOLU-Medrol 125MG VIAL) 125 mg 1X ONCE IV Last administered on 01/31/20at 17:53; Start 01/31/20 at 17:30; Stop 01/31/20 at 17:33; Status DC Ondansetron HCl (Zofran) 4 mg PRN Q8HRS PRN IV NAUSEA/VOMITING; Start 01/31/20 at 18:00; Stop 02/01/20 at 17:59; Status DC Donepezil HCl (Aricept) 5 mg HS PO Last administered on 02/01/20at 21:52; Start 02/01/20 at 21:00 Duloxetine HCl (Cymbalta) 30 mg DAILY PO Last administered on 02/02/20at 10:08; Start 02/01/20 at 09:00 Fluticasone Propionate (Flonase) 2 spray DAILY NS Last administered on 02/02/20 10:07; Start 02/01/20 at 09:00 Acetaminophen/ Hydrocodone Bitart (Lortab 5/325) 1 tab PRN Q6HRS PRN PO PAIN; Start 02/01/20 at 08:30 Albuterol/ Ipratropium (Duoneb) 3 ml RTQID NEB ; Start 02/01/20 at 09:00; Stop 02/01/20 at 08:43; Status DC Levofloxacin (Levaquin) 500 mg DAILY PO ; Start 02/01/20 at 09:00; Stop 02/01/20 at 08:41; Status DC Polyethylene Glycol (miraLAX PACKET) 17 gm DAILY PO Last administered on 02/01/20at 10:26; Start 02/01/20 at 09:00 Prednisone (Prednisone) 20 mg DAILY PO ; Start 02/01/20 at 09:00; Stop 02/01/20 at 08:41; Status DC Tamsulosin HCl (Flomax) 0.4 mg HS PO Last administered on 02/01/20at 21:52; Start 02/01/20 at 21:00 Trazodone HCl (Desyrel) 100 mg HS PO Last administered on 02/01/20at 21:52; Start 02/01/20 at 21:00 Ursodiol (Actigall) 300 mg BID PO Last administered on 02/02/20at 10:08; Start 02/01/20 at 09:00 Non-Formulary Medication (Fluticasone/ Salmeterol (Advair 500-50 Diskus)) 1 inh BID IH ; Start 02/01/20 at 09:00; Status UNV Pregabalin (Lyrica) 150 mg BID PO Last administered on 02/02/20at 10:08; Start 02/01/20 at 08:45 Spironolactone (Aldactone) 100 mg DAILY PO Last administered on 02/01/20at 10:27; Start 02/01/20 at 09:00 Non-Formulary Medication (Tiotropium [place] (Spiriva)) 2 inh DAILY IH ; Start 02/01/20 at 09:00; Status UNV Vitamin B Complex (Riley B) 1 tab DAILY PO Last administered on 02/02/20at 10:07; Start 02/01/20 at 09:00 Enoxaparin Sodium (Lovenox Per Pharmacy Prophylaxis Dosing) 1 each PRN DAILY PRN MC SEE COMMENTS; Start 02/01/20 at 08:45 Dextrose/Sodium Chloride 1,000 ml @ 100 mls/hr Q10H IV Last administered on 02/02/20 04:59; Start 02/01/20 at 09:00 Prednisone (Prednisone) 60 mg DAILY PO Last administered on 02/02/20 10:08; Start 02/01/20 at 09:00 Doxycycline Hyclate (Vibra-Tab) 100 mg BID PO Last administered on 02/02/20 10:08; Start 02/01/20 at 09:00 Enoxaparin Sodium (Lovenox 40mg Syringe) 40 mg BID SQ Last administered on 02/02/20 10:10; Start 02/01/20 at 09:00 Albuterol/ Ipratropium (Combivent Respimat 20-100 Mcg) 1 puff RTQID INH Last administered on 02/02/20 12:23; Start 02/01/20 at 12:00 Budesonide (Pulmicort) 0.5 mg RTBID NEB Last administered on 02/02/20 07:37; Start 02/01/20 at 20:00 Lactobacillus Rhamnosus (Culturelle) 1 cap BID PO Last administered on 02/02/20 10:08; Start 02/01/20 at 21:00 Levofloxacin/ Dextrose (Levaquin Per Pharmacy) 1 each PRN DAILY PRN MC SEE COMMENTS; Start 02/01/20 at 11:30 Levofloxacin/ Dextrose 100 ml @ 100 mls/hr Q24H IV Last administered on 02/01/20at 13:10; Start 02/01/20 at 12:00 Active Scripts Active Prednisone 20 Mg Tablet 1 Tab PO DAILY 9 Days take 3 tabs daily for 3 days then 2 tabs daily for 3 days then 1 tab daily for 3 days. Levaquin (Levofloxacin) 500 Mg Tablet 1 Tab PO DAILY 4 Days Polyethylene Glycol 3350 17 Gm Powd.pack 17 Gm PO DAILY 30 Days [place] 5-325 Tablet (Acetaminophen/Hydrocodone Bitart) 1 Each Tablet 1 Tab PO PRN Q6HRS PRN 30 Days Duoneb 0.5-3(2.5) Mg/3 Ml (Albuterol/Ipratropium) 3 Ml Ampul.neb 3 Ml NEB QID 30 Days Reported Fluticasone Propionate Nasal [place] (Fluticasone Propionate) 16 Gm [place].susp 2 [place] NS DAILY Ursodiol 300 Mg Capsule 300 Mg PO BID Spiriva (Tiotropium [place]) 18 Mcg Cap.w.dev 2 Inh IH DAILY Hydrochlorothiazide Tablet (Hydrochlorothiazide) 12.5 Mg Tablet 12.5 Mg PO DAILY Cymbalta (Duloxetine Hcl) 30 Mg Capsule.dr 30 Mg PO DAILY Advair 500-50 Diskus (Fluticasone/Salmeterol) 1 Each Disk.w.dev 1 Inh IH BID Trazodone Hcl 100 Mg Tablet 100 Mg PO HS Lyrica (Pregabalin) 150 Mg Capsule 150 Mg PO BID 30 Days Tamsulosin Hcl 0.4 Mg Cap.er.24h 0.4 Mg PO HS Spironolactone 50 Mg Tablet 2 Tab PO DAILY Super B Complex (Vitamin B Complex & Vit C No.4) 150 Mg Tablet 150 Mg PO DAILY Aricept (Donepezil Hcl) 5 Mg Tablet 5 Mg PO HS Vital Signs Vital Signs Date Time Temp Pulse Resp B/P (MAP) Pulse Ox O2 Delivery O2 Flow Rate FiO2 02/02/20 11:00 98.5 99 18 127/69 (88) 98 Nasal Cannula 3.0 98.5 Labs Laboratory Tests Test 01/31/20 15:41 01/31/20 16:25 01/31/20 16:30 01/31/20 18:06 White Blood Count 16.0 x10^3/uL (4.0-11.0) Red Blood Count 4.93 x10^6/uL (4.30-5.70) Hemoglobin 15.3 g/dL (13.0-17.5) Hematocrit 44.7 % (39.0-53.0) Mean Corpuscular Volume 91 fL (79-100) Mean Corpuscular Hemoglobin 31 pg (25-35) Mean Corpuscular Hemoglobin Concent 34 g/dL (31-37) Red Cell Distribution Width 13.4 % (11.5-14.5) Platelet Count 282 x10^3/uL (140-400) Neutrophils (%) (Auto) 94 % (31-73) Lymphocytes (%) (Auto) 3 % (24-48) Monocytes (%) (Auto) 2 % (0-9) Eosinophils (%) (Auto) 0 % (0-3) Basophils (%) (Auto) 0 % (0-3) Neutrophils # (Auto) 15.0 x10^3/uL (1.8-7.7) Lymphocytes # (Auto) 0.5 x10^3/uL (1.0-4.8) Monocytes # (Auto) 0.4 x10^3/uL (0.0-1.1) Eosinophils # (Auto) 0.0 x10^3/uL (0.0-0.7) Basophils # (Auto) 0.0 x10^3/uL (0.0-0.2) Segmented Neutrophils % 95 % (35-66) Lymphocytes % 2 % (24-48) Monocytes % 3 % (0-10) Platelet Estimate Adequate (ADEQUATE) Large Platelets Present Sodium Level 134 mmol/L (136-145) Potassium Level 5.5 mmol/L (3.5-5.1) Chloride Level 97 mmol/L (98-107) Carbon Dioxide Level 31 mmol/L (21-32) Anion Gap 6 (6-14) Blood Urea Nitrogen 26 mg/dL (8-26) Creatinine 1.3 mg/dL (0.7-1.3) Estimated GFR (Cockcroft-Gault) 64.4 BUN/Creatinine Ratio 20 (6-20) Glucose Level 157 mg/dL (70-99) Calcium Level 9.7 mg/dL (8.5-10.1) Total Bilirubin 0.5 mg/dL (0.2-1.0) Aspartate Amino Transf (AST/SGOT) 23 U/L (15-37) Alanine Aminotransferase (ALT/SGPT) 17 U/L (16-63) Alkaline Phosphatase 76 U/L (46-116) Troponin I Quantitative < 0.017 ng/mL (0.000-0.055) TR-Voy-V-Type Natriuretic Peptide 38 pg/mL (0-449) Total Protein 8.1 g/dL (6.4-8.2) Albumin 3.9 g/dL (3.4-5.0) Albumin/Globulin Ratio 0.9 (1.0-1.7) Lipase 118 U/L (73-393) Urine Collection Type Unknown Urine Color Yellow Urine Clarity Clear Urine pH 5.0 (<5.0-8.0) Urine Specific [place] 1.015 (1.000-1.030) Urine Protein Negative mg/dL (NEG-TRACE) Urine Glucose (UA) Negative mg/dL (NEG) Urine Ketones (Stick) 15 mg/dL (NEG) Urine Blood Negative (NEG) Urine Nitrite Negative (NEG) Urine Bilirubin Negative (NEG) Urine Urobilinogen Dipstick 0.2 mg/dL (0.2 mg/dL) Urine Leukocyte Esterase Negative (NEG) Urine RBC 0 /HPF (0-2) Urine WBC 5-10 /HPF (0-4) Urine Squamous Epithelial Cells Few /LPF Urine Bacteria Moderate /HPF (0-FEW) Urine Hyaline Casts Moderate /HPF Urine Mucus Mod /LPF O2 Saturation 97 % (92-99) Arterial Blood pH 7.37 (7.35-7.45) Arterial Blood pCO2 at Patient Temp 44 mmHg (35-46) Arterial Blood pO2 at Patient Temp 102 mmHg (65-108) Arterial Blood HCO3 25 mmol/L (21-28) Arterial Blood Base Excess -1 mmol/L (-3-3) Oxyhemoglobin 96.6 % Methemoglobin 0.4 % (0.0-1.9) Carbon Monoxide, Quantitative 0.1 % (0.0-1.9) FiO2 3l nc Coronavirus (PCR) Not detected (Not Detected) Test 02/01/20 07:47 02/02/20 08:36 02/02/20 11:23 Glucose (Fingerstick) 131 mg/dL (70-99) 139 mg/dL (70-99) 164 mg/dL (70-99) Laboratory Tests Test 02/02/20 08:36 02/02/20 11:23 Glucose (Fingerstick) 139 mg/dL (70-99) 164 mg/dL (70-99) Allergies Allergies Coded Allergies Type Severity Reaction Last Updated Verified codeine Adverse Reaction Intermediate 07/13/18 Yes Justicifation of Admission Dx: Justifications for Admission: Justification of Admission Dx: Yes Acute COPD Exacerbation: Acute COPD Exacerbation ELIZABETH VAZQUEZ MD Feb 02, 2020 14:17
[2020-02-02] MEDS ORDERED: PRED20TA PO (14:20)
[2020-02-02] MEDS ORDERED: BUDE0.5A NEB (14:20)
[2020-02-02] MEDS ORDERED: LACT1CAP19 PO (14:20)
[2020-02-02] MEDS ORDERED: DOXY100T PO (14:20)
--- NOTE | 2020-02-02 14:22 | SNU/HH DC ---
DISCHARGE WITH HOME HEALTH DISCHARGE INFORMATION: Final Diagnosis: Problems Medical Problems: (1) Person under investigation for COVID-19 Status: Acute Condition on Discharge: Stable CODE STATUS: Code Status: Full HOME HEALTH: Face to Face: I certify this patient is under my care and that I, or a nurse practitioner or physician's painter assistant working with me, had a face to face encounter that meets the physician face to face encounter requirements with this patient on []. Medical Complications: COPD RN For Eval/Treatment: Yes Physical Therapy For: Evalulation/Treatment Occupational Therapy For: Evaluation/Treatment Speech Language Pathology For: Evaluation/Treatment Home Health Aide For: Self-care FISHING ACCESSORIES MAKER For: Community Resources Pt Meets Homebound Status: Fatigue w/ amb. POST DISCHARGE ORDERS: Activity Instructions for Disc: Activity as tolerated, Avoid exertion Weight Bearing Status after Di: No restrictions Bathing Instructions: No Tub Bath until see DIET AFTER DISCHARGE: Cardiac Wound/Incision Care: Ice to area for comfort, Do not change dressing CHECKS AFTER DISCHARGE: Checks after discharge: Check blood press - daily FOLLOW-UP: PCP to follow Home Health: 2 DAYS Follow up with: DR MICHELLE 4 WEEKS TREATMENT/EQUIPMENT ORDERS: Adaptive Equipment Issued: None, Front wheeled walker Discharge Respiratory Equipmen: Nebulizer CERTIFICATION STATEMENT: Certification Statement: Certification Statement: Based on the above finding, I certify that this patient is confined to the home and needs intermittent mcc care, physical therapy and/or speech therapy, or continues to need occupational therapy.~ This patient is under my care, and I have initiated the establishment of the plan of care.~ This patient will be followed by myself or a community physician who will periodically review the plan of care. Home Meds Active Scripts Prednisone (PREDNISONE) 20 Mg Tablet, 60 MG PO DAILY for COPD for 7 Days, #21 TAB Prov:ELIZABETH VAZQUEZ MD 02/02/20 Lactobacillus Rhamnosus Gg (CULTURELLE) 1 Each Cap.sprink, 1 CAP PO BID for SUPPLEMENT for 30 Days, #60 CAP Prov:ELIZABETH VAZQUEZ MD 02/02/20 Budesonide (BUDESONIDE) 0.5 Mg/2 Ml Ampul.neb, 0.5 MG NEB RTBID for COPD for 30 Days, #60 EACH Prov:ELIZABETH VAZQUEZ MD 02/02/20 Doxycycline Hyclate (DOXYCYCLINE HYCLATE) 100 Mg Tablet, 100 MG PO BID for BRONCHITIS for 14 Days, #28 TAB Prov:ELIZABETH VAZQUEZ MD 02/02/20 Polyethylene Glycol 3350 (POLYETHYLENE GLYCOL 3350) 17 Gm Powd.pack, 17 GM PO DAILY for constipation for 30 Days, #30 PKT Prov:JOE GARNICA MD 07/16/18 Hydrocodone/Apap 5-325 (NORCO 5-325 TABLET) 1 Each Tablet, 1 TAB PO PRN Q6HRS NV N for PAIN for 30 Days, TAB 0 Refills Prov:JOE GARNICA MD 07/14/18 Ipratropium/Albuterol Sulfate (DUONEB 0.5-3(2.5) MG/3 ML) 3 Ml Ampul.neb, 3 ML NEB QID for copd for 30 Days, #120 EACH Prov:JOE GARNICA MD 07/14/18 Reported Medications Fluticasone Propionate (FLUTICASONE PROPIONATE NASAL SPRAY) 16 Gm [place].susp, 2 SPRAY NS DAILY for Congestion, EACH 07/14/18 Ursodiol (URSODIOL) 300 Mg Capsule, 300 MG PO BID for Gallstones, CAP 07/14/18 Tiotropium [place] (SPIRIVA) 18 Mcg Cap.w.dev, 2 INH IH DAILY for SOA, #1 INH 0 Refills 07/14/18 Hydrochlorothiazide (HYDROCHLOROTHIAZIDE TABLET) 12.5 Mg Tablet, 12.5 MG PO DAILY for DIURETIC, TAB 0 Refills 06/22/18 Duloxetine Hcl (CYMBALTA) 30 Mg Capsule.dr, 30 MG PO DAILY, CAP 02/11/18 Fluticasone/Salmeterol (ADVAIR 500-50 DISKUS) 1 Each Disk.w.dev, 1 INH IH BID, INHALER 02/11/18 Trazodone Hcl (TRAZODONE HCL) 100 Mg Tablet, 100 MG PO HS, TAB 02/11/18 Pregabalin (LYRICA) 150 Mg Capsule, 150 MG PO BID for 30 Days, CAP 02/11/18 Tamsulosin Hcl (TAMSULOSIN HCL) 0.4 Mg Cap.er.24h, 0.4 MG PO HS, TAB 02/11/18 Spironolactone (SPIRONOLACTONE) 50 Mg Tablet, 2 TAB PO DAILY, #30 TAB 5 Refills 02/10/18 Vitamin B Complex & Vit C No.4 (SUPER B COMPLEX) 150 Mg Tablet, 150 MG PO DAILY, TAB 01/05/18 Donepezil Hcl (ARICEPT) 5 Mg Tablet, 5 MG PO HS, TAB 09/10/16 Discontinued Scripts Prednisone (PREDNISONE) 20 Mg Tablet, 1 TAB PO DAILY for COPD for 9 Days, #9 TAB take 3 tabs daily for 3 days then 2 tabs daily for 3 days then 1 tab daily for 3 days. Prov:JOE GARNICA MD 07/16/18 Levofloxacin (LEVAQUIN) 500 Mg Tablet, 1 TAB PO DAILY for pneumonia for 4 Days, #4 TAB Prov:JOE GARNICA MD 07/16/18 ELIZABETH VAZQUEZ MD Feb 02, 2020 14:22
[2020-02-02 15:00] VITALS: BP 137/78
--- NOTE | 2020-02-02 17:26 | NUR ---
Pt left unit at 1720 by wheelchair via private vehicle with spouse. Pt's IV removed, no complications noted. Discharge paperwork discussed with pt in person, Tanya, per telephone at [phone] and daughter, Ariane at [phone]. Each green party verbalized understanding. Belongings sent with pt at time of discharge.
--- NOTE | 2020-02-02 17:30 | NUR ---
SW following. Reviewed chart and discussed with RN. Pt to discharge home today with HH from [facility]. Met with RN and provided clinicals. Pt has been accepted. Discharge orders phoned and faxed. Pt provided with script for nebulizer. No further SW needs at this time. Addendum: 02/03/20 at 0946 by MASOUD POOL Spoke with admissions and confirmed that orders were received and start of care is on 02/03.
== END 2020-02-02 17:32 | disposition home health service (06) | DRG 189 ==
LOC: ER 14:58 → ED HOLD 17:50 → 6 SOUTH 19:11
PROVIDERS: ADMIT Internal Medicine; ATTEND Internal Medicine
DX: J96.22 Acute and chronic respiratory failure with hypercapnia (principal); J18.9 Pneumonia, unspecified organism; J44.0 Chronic obstructive pulmonary disease with (acute) lower respiratory infection; J98.11 Atelectasis; J44.1 Chronic obstructive pulmonary disease with (acute) exacerbation; J96.21 Acute and chronic respiratory failure with hypoxia; J20.9 Acute bronchitis, unspecified; E11.22 Type 2 diabetes mellitus with diabetic chronic kidney disease; E11.40 Type 2 diabetes mellitus with diabetic neuropathy, unspecified; E78.00 Pure hypercholesterolemia, unspecified; E78.5 Hyperlipidemia, unspecified; E87.5 Hyperkalemia; F03.90 Unspecified dementia, unspecified severity, without behavioral disturbance, psychotic disturbance, mood disturbance, and anxiety; G89.29 Other chronic pain; I12.9 Hypertensive chronic kidney disease with stage 1 through stage 4 chronic kidney disease, or unspecified chronic kidney disease; N18.2 Chronic kidney disease, stage 2 (mild); Z20.828 Contact with and (suspected) exposure to other viral communicable diseases; Z87.891 Personal history of nicotine dependence; Z96.649 Presence of unspecified artificial hip joint; F32.9 Major depressive disorder, single episode, unspecified; M19.90 Unspecified osteoarthritis, unspecified site; Z90.49 Acquired absence of other specified parts of digestive tract
CPT/HCPCS: 36415; 36600; 71045; 71250; 74177; 80053; 81001; 82805; 82962; 83690; 83880; 84484; 85007; 85025; 87086; 93005; 94640; 94760; 96365; 96366; 96375; 99285; J1650; J1956; J2930; J3490; J7030; J7042; J7060; J7512; Q9967; G0378; J7626; U0003-CS

== ENCOUNTER → 2020-02-17 | Outpatient (CLI) | payer MEDICARE, BC ==
[2020-02-02 15:00] VITALS: BP 137/78
[~2020-02-17] MED LIST changes: +BUDE0.5A NEB; +DOXY100T PO; +LACT1CAP19 PO
--- NOTE | 2020-02-17 12:14 | RAD ---
EXAM: CHEST PA LATERAL INDICATION: Reason: FOLLOW-UP. SOA, COPD / Spl. Instructions: / History: . TECHNIQUE: PA and lateral views COMPARISON: 01/31/2020 chest x-ray, CT chest without IV contrast of 02/01/2020 FINDINGS: The heart size is normal. The great vessels appear unremarkable. There is no hilar or mediastinal mass. Lungs are hyperinflated in a pattern consistent with underlying COPD. There is no pleural effusion or pneumothorax. There are no significant osseous abnormalities. IMPRESSION: COPD with no active cardiopulmonary disease. Electronically signed by: Dioni Mcintyre MD (02/17/2020 12:11 PM) [id number]
== END ==
LOC: RAD 10:49
PROVIDERS: ATTEND Family Medicine
DX: Z09 Encounter for follow-up examination after completed treatment for conditions other than malignant neoplasm (principal); J44.9 Chronic obstructive pulmonary disease, unspecified
CPT/HCPCS: 71046

== ENCOUNTER → 2020-08-21 | Outpatient (CLI) | payer MEDICARE, BC ==
[~2020-08-21] MED LIST changes: -LISI-338 PO; +LISI-517 PO; -POLY17PO28 PO; +POLY17PO52 PO
--- NOTE | 2020-08-21 11:08 | RAD ---
Exam Date: 08/21/2020 9:40 AM XR CHEST 2V Indication: Reason: COPD / Spl. Instructions: / History: Comparison: February 17, 2020 FINDINGS/ IMPRESSION: The aorta is calcified. The cardiac silhouette and pulmonary vasculature are within normal limits. There is no focal consolidation, pleural effusion or pneumothorax. Degenerative changes are seen in the spine. Lungs are hyperinflated with flattened diaphragms and biapical lucencies consistent with COPD. Electronically signed by: Khanh Richard MD (08/21/2020 11:06 AM) [id number]
== END ==
LOC: RAD 09:26
PROVIDERS: ATTEND Internal Medicine Pulmonary Disease
DX: J44.9 Chronic obstructive pulmonary disease, unspecified (principal)
CPT/HCPCS: 71046

== ENCOUNTER 2020-09-21 16:12 | Emergency (ER) | payer MEDICARE, BC ==
[~2020-09-21] VITALS: Ht 182.9 cm; Wt 81.8 kg
--- NOTE | 2020-09-21 17:13 | PHYS DOC ---
Past Medical History Past Medical History: COPD, Depression, Diabetes-Type II, High Cholesterol, Hypertension Additional Past Medical Histor: NEUROPATHY Past Surgical History: Cholecystectomy, Hip Replacement Additional Past Surgical Histo: RIGHT HIP Smoking Status: Former Smoker Alcohol Use: None Drug Use: None General Adult EDM: Chief Complaint: MECHANICAL FALL HPI: HPI: 79-year-old male presenting the emergency department today after sustaining head injury on Friday. He reports he had a mechanical fall where he was trying to grab for something in the bathroom but unfortunately could not grab onto a tight enough and fell backwards and hit his head. He is not on blood thinners according to the medical list in our EMR. Patient is unsure if he is on blood thinners his is here with him today. He denies any other injuries. The patient denies any hip pain is been walking since with the ability to bear weight in his hips without any pain in the hips. He has not had any slurred speech but has had some trouble concentrating and some memory issues since which is new for him. He denies any new focal neurologic deficits. Review of systems negative for chest pain shortness of breath abdominal pain vomiting fevers chills. All other review of systems negative. ED course: 79-year-old male presenting the emergency department today with head injury after a fall. He denies any other injuries. It was a mechanical fall. He denies syncope. He denies loss of consciousness. His neurologic exam here is unremarkable. There is no obvious laceration or bleeding to the head or neck. He has nontender cervical thoracic and lumbar spine without step-offs. No other injuries noted on secondary survey. Head and neck CT ordered and unremarkable. No other traumatic injuries noted. It was mechanical fall. On reexamination I explained the findings to the patient. We will discharge him to follow-up with PCP 1 to 2 days. He is return to the emergency department of any new or concerning findings. Review of Systems: Review of Systems: Constitutional: Denies fever or chills. [] Eyes: Denies change in visual acuity. [] HENT: Denies nasal congestion or sore throat. [] Respiratory: Denies cough or shortness of breath. [] Cardiovascular: Denies chest pain or edema. [] GI: Denies abdominal pain, nausea, vomiting, bloody stools or diarrhea. [] : Denies dysuria. [] Musculoskeletal: Denies back pain or joint pain. [] Integument: Denies rash. [] Neurologic: Denies headache, focal weakness or sensory changes. [] Endocrine: Denies polyuria or polydipsia. [] Lymphatic: Denies swollen glands. [] Psychiatric: Denies depression or anxiety. [] Heart Score: C/O Chest Pain: No Risk Factors: Risk Factors: DM, Current or recent (<one month) smoker, HTN, HLP, family history of CAD, obesity. Risk Scores: Score 0 - 3: 2.5% MACE over next 6 weeks - Discharge Home Score 4 - 6: 20.3% MACE over next 6 weeks - Admit for Clinical Observation Score 7 - 10: 72.7% MACE over next 6 weeks - Early Invasive Strategies Allergies: Allergies: Allergies Coded Allergies Type Severity Reaction Last Updated Verified codeine Adverse Reaction Intermediate 07/13/18 Yes Physical Exam: PE: Constitutional: Well developed, well nourished, no acute distress, non-toxic appearance. [] HENT: Normocephalic, without any obvious lacerations or swelling., bilateral external ears normal, oropharynx moist, no oral exudates, nose normal. [] Eyes: PERRLA, EOMI, conjunctiva normal, no discharge. [] Neck: Normal range of motion, no tenderness, supple, no stridor. [] Cardiovascular:Heart rate regular rhythm, no murmur [] atraumatic Lungs & Thorax: Bilateral breath sounds clear to auscultation [] Abdomen: Bowel sounds normal, soft, no tenderness, no masses, no pulsatile masses. [] Atraumatic Skin: Warm, dry, no erythema, no rash. [] Back: No tenderness, no CVA tenderness. [] Extremities: No tenderness, no cyanosis, no clubbing, ROM intact, no edema. [] atraumatic. Normal range of motion of the joints. No abrasions lacerations or ecchymosis. Neurologic: Mental status: Awake oriented and alert x3 Cranial nerves: Extraocular movements intact, eyebrows tima bilaterally, smile symmetric, uvula elevation nl, shoulder shrug intact bilaterally, tongue p rotrusion normal Clear speech. Sensation: equal and normal in all extremities Strength: 5/5 in upper and lower extremities bilaterally Psychologic: Affect normal, judgement normal, mood normal. [] EKG: EKG: [] Radiology/Procedures: Radiology/Procedures: [] Course & Med Decision Making: Course & Med Decision Making Pertinent Labs and Imaging studies reviewed. (See chart for details) [] Dragon Disclaimer: Dragon Disclaimer: This electronic medical record was generated, in whole or in part, using a voice recognition dictation system. Departure Departure Impression: Primary Impression: Head injury Disposition: 01 DC HOME SELF CARE/HOMELESS Condition: STABLE Referrals: Claudia CASTANEDA MD (PCP) KACI OLMEDO MD Sep 21, 2020 17:12
--- NOTE | 2020-09-21 17:23 | RAD ---
CT HEAD AND C-SPINE WO dated 09/21/2020 4:45 PM. Comparison: None. Clinical Indication: Reason: head injury / Spl. Instructions: / History: , HEAD AND NECK PAIN Technical factors: Contiguous 5 mm axial images of the head were obtained from the skullbase to the v ertex. No contrast was administered. In addition, 3 mm axial images of the cervical spine were acquir ed with thin cut coronal and sagittal reconstructions. One or more of the following individualized dose reduction techniques were utilized for this examinat ion: 1. Automated exposure control 2. Adjustment of the mA and/or kV according to patient size 3. Use of iterative reconstruction technique Findings head: Ventricles and sulci are mildly prominent for age. No midline shift or mass effect. Mild patchy low d ensity in the deep/subcortical periventricular white matter. No hemorrhage or extra-axial collection. Posterior fossa and brainstem unremarkable. Mild mucosal thickening of the right maxillary sinus. Visualized paranasal sinuses and mastoid air ce lls are otherwise clear. No apparent calvarial abnormality. IMPRESSION HEAD: 1. No evidence of acute intracranial hemorrhage or mass. 2. Mild chronic small vessel ischemic changes and atrophy. Findings cervical spine: Images were acquired from the skull base to T2. There is straightening of the normal cervical lordosi s, otherwise sagittal alignment is anatomic. Vertebral body heights are maintained. No prevertebral s oft tissue swelling. Posterior elements are intact. No fractures are identified. Moderate endplate hypertrophic changes throughout with moderate multilevel uncovertebral spurring and facet arthropathy. There is been anterior fusion from C3 to C5 with anterior plate and intervertebra l body screws. No radiolucency along the screw margins. There is severe left foraminal stenosis at C4 -C5 and C5-C6 and C6-C7 mild to moderate foraminal narrowing at the remaining levels. No apparent foc al disc herniation. There is mild central canal narrowing at C4-C5 and C5-C6. Visualized soft tissue structures are unremarkable. Images of the upper chest show moderate emphysema . IMPRESSION CERVICAL SPINE: 1. No evidence of fracture or malalignment. 2. Moderate multilevel spondylosis. 3. Status post anterior fusion from C3 to C5. Electronically signed by: Trenton Zuniga MD (09/21/2020 5:21 PM) [facility]
[2020-09-21 17:46] VITALS: BP 103/74
== END 2020-09-21 18:12 | disposition home or self-care (01) ==
LOC: ER 16:12
DX: S09.90XA Unspecified injury of head, initial encounter (principal); J44.9 Chronic obstructive pulmonary disease, unspecified; E11.40 Type 2 diabetes mellitus with diabetic neuropathy, unspecified; E78.00 Pure hypercholesterolemia, unspecified; I10 Essential (primary) hypertension; F32.9 Major depressive disorder, single episode, unspecified; Z87.891 Personal history of nicotine dependence; Z88.5 Allergy status to narcotic agent; W18.09XA Striking against other object with subsequent fall, initial encounter; Y93.89 Activity, other specified; Y92.89 Other specified places as the place of occurrence of the external cause; Y99.8 Other external cause status
CPT/HCPCS: 70450; 72125; 99285-25

== ENCOUNTER 2021-09-24 13:01 | Inpatient (IN) | payer MEDICARE, BC ==
[~2021-09-24] VITALS: Ht 182.9 cm; Wt 69.0 kg
[~2021-09-24 13:01] MED LIST changes: +CHOL5000 PO; +LIDO700A21 TD; -LISI-517 PO; +LISI5TAB15 PO
--- NOTE | 2021-09-24 13:35 | RAD ---
XR CHEST 1V 09/24/2021 1:17 PM INDICATION: Altered mental status COMPARISON: 08/21/2020 TECHNIQUE: Portable frontal view of the chest is provided. FINDINGS: The cardiomediastinal silhouette is within normal limits. Lungs are clear. There are no significant pleural effusions. There is no pulmonary vascular congestion. Severe bullous airspace disease identified at the lung apices, similar to the prior examination. There are curvilin ear lines projecting over the right upper lobe and to a lesser extent left upper lobe which may make a pneumothorax. Definite pneumothorax is not visualized. No suspicious osseous abnormality. Anterior cervical discectomy fusion hardware is partially profiled . IMPRESSION: There is no acute cardiopulmonary process. Pulmonary emphysematous changes are present. There are curvilinear lines projecting over the right upper lobe and to a lesser extent left upper lo be which may make a pneumothorax. Definite pneumothorax is not visualized. Electronically signed by: Malia Eaton MD (09/24/2021 1:33 PM) [id number]
--- NOTE | 2021-09-24 13:49 | RAD ---
CT HEAD/BRAIN WO Date: 09/24/2021 1:21 PM Clinical Indication: ams Comparison: 05/21/2021. Technique: 5 mm axial tomographic images were obtained of the head without contrast. These were view ed on brain and bone windows. One or more of the following dose reduction techniques were utilized: A utomated exposure control (AEC), Adjustment of mA and/or kV according to patient size, Use of iterati ve reconstruction technique such as ASiR, CT scan done according to ALARA and image gently/image larry ly Findings: Mild generalized cerebral and cerebellar volume loss. Mild nonspecific periventricular hypoattenuatio n, most commonly seen with chronic small vessel ischemic disease. Calcified atherosclerosis of the bi lateral cavernous and paraclinoid internal carotid arteries and intracranial vertebral arteries. No intra- or extra-axial mass or fluid collection. No acute hemorrhage. The ventricles are normal in size, shape, and morphology. The rodriguez-white matter junction is normal. The subarachnoid cisterns are patent. The visualized paranasal sinuses are normal. The visualized portions of the orbits and globes are no rmal. Trace mastoid fluid. The brush and broom clipper topogram shows no lytic lesion or fracture. Impression: No acute intracranial process. Mild cerebral volume loss. Mild chronic small vessel ischemic disease. Electronically signed by: Fidel Vivar MD (09/24/2021 1:46 PM) [facility]
--- NOTE | 2021-09-24 13:52 | PHYS DOC ---
Past Medical History Past Medical History: COPD, Depression, Diabetes-Type II, High Cholesterol, Hypertension Additional Past Medical Histor: NEUROPATHY Past Surgical History: No Surgical History Additional Past Surgical Histo: unknown Smoking Status: Never Smoker Alcohol Use: None Drug Use: None General Adult EDM: Chief Complaint: ALTERED MENTAL STATUS HPI: HPI: Patient is a 80 year old male presents to the ER from home brought in by medics. Patient's states that the patient's health has been deteriorating over the last few months. Patient unable to care for himself has been wetting the bed reports decreased p.o. intake. Patient unable to carry out ADLs by himself. No acute changes today states that she can no longer take care of him and wants help placed seeing the patient in a correction. Review of Systems: Review of Systems: Constitutional: Denies fever or chills. Poor p.o. intake generalized weakness Eyes: Denies change in visual acuity. HENT: Denies nasal congestion or sore throat. Respiratory: Denies cough or shortness of breath. Cardiovascular: Denies chest pain or edema. GI: Denies abdominal pain, nausea, vomiting, bloody stools or diarrhea. : Denies dysuria. Musculoskeletal: Denies back pain or joint pain. Integument: Denies rash. Neurologic: Denies headache, focal weakness or sensory changes. Endocrine: Denies polyuria or polydipsia. Lymphatic: Denies swollen glands. Psychiatric: Denies depression or anxiety. Heart Score: C/O Chest Pain: No Risk Factors: Risk Factors: DM, Current or recent (<one month) smoker, HTN, HLP, family history of CAD, obesity. Risk Scores: Score 0 - 3: 2.5% MACE over next 6 weeks - Discharge Home Score 4 - 6: 20.3% MACE over next 6 weeks - Admit for Clinical Observation Score 7 - 10: 72.7% MACE over next 6 weeks - Early Invasive Strategies Allergies: Allergies: Allergies Coded Allergies Type Severity Reaction Last Updated Verified codeine Adverse Reaction Intermediate 05/21/21 Yes Physical Exam: PE: Constitutional: Patient is frail and cachectic ill-appearing slow to respond HENT: Normocephalic, atraumatic, bilateral external ears normal, mucous mem branes appear dry t, no oral exudates, nose normal. Eyes: PERRLA, EOMI, conjunctiva normal, no discharge. Neck: Normal range of motion, no tenderness, supple, no stridor. Cardiovascular:Heart rate regular rhythm, no murmur Lungs & Thorax: Bilateral breath sounds clear to auscultation Abdomen: Bowel sounds normal, soft, no tenderness, no masses, no pulsatile masses. Skin: Patient had poor turgor warm, dry, no erythema, no rash. Back: No tenderness, no CVA tenderness. Extremities: No tenderness, no cyanosis, no clubbing, ROM intact, no edema. Neurologic: Alert and oriented X 3, generalized strength is weak. No sensory deficits Psychologic: Affect normal, judgement normal, mood normal. Current Patient Data: Vital Signs: Vital Signs Date Time Temp Pulse Resp B/P (MAP) Pulse Ox O2 Delivery O2 Flow Rate FiO2 09/24/21 13:38 109 20 131/78 (95) 100 Room Air 09/24/21 13:01 98.1 4.0 98.1 EKG: EKG: [] Initial EKG was poor quality and on undetermined rhythm. Second EKG was ordered Second EKG demonstrated sinus tachycardia with a QTC of 450. Heart rate of 127 Radiology/Procedures: Radiology/Procedures: []Impression: No acute intracranial process. Mild cerebral volume loss. Mild chronic small vessel ischemic disease. IMPRESSION: There is no acute cardiopulmonary process. Pulmonary emphysematous changes are present. There are curvilinear lines projecting over the right upper lobe and to a lesser extent left upper lobe which may make a pneumothorax. Definite pneumothorax is not visualized. Course & Med Decision Making: Course & Med Decision Making Pertinent Labs and Imaging studies reviewed. (See chart for details) [] Patient given IV fluids blood cultures were taken and patient started antibiotics After reviewing the chest x-ray which showed a possible pneumothorax patient placed on nonrebreather at 100% oxygen and a CT scan was ordered Case was endorsed over to the hospitalist Dr. Daugherty. Isaac Disclaimer: Isaac Disclaimer: This electronic medical record was generated, in whole or in part, using a voice recognition dictation system. Departure Departure Referrals: Claudia CASTANEDA MD (PCP) RAFITA MUNGUIA DO Sep 24, 2021 13:52
[2021-09-24 14:00] LABS: BASO # 0.1 x10^3/uL (0.0-0.2); BASO % 0 % (0-3); EOS % 0 % (0-3); HEMATOCRIT 44.3 % (39.0-53.0); HEMOGLOBIN 14.8 g/dL (13.0-17.5); LYMPH # 0.6 x10^3/uL (1.0-4.8); LYMPH % 3 % (24-48); MEAN CORPUSCULAR HEMOGLOBIN 30 pg (25-35); MEAN CORPUSCULAR HGB CONC 33 g/dL (31-37); MEAN CORPUSCULAR VOLUME 90 fL (79-100); MONO # 1.2 x10^3/uL (0.0-1.1); MONO % 6 % (0-9); NEUT % 91 % (31-73); PLATELET COUNT 325 x10^3/uL (140-400); RED BLOOD COUNT 4.91 x10^6/uL (4.30-5.70); RED CELL DISTRIBUTION WIDTH 13.6 % (11.5-14.5); WHITE BLOOD COUNT 19.9 x10^3/uL (4.0-11.0)
[2021-09-24 14:09] LABS: CALCIUM 10.2 mg/dL (8.5-10.1); CREATININE 1.3 mg/dL (0.7-1.3); GFR 64.3; POTASSIUM 5.4 mmol/L (3.5-5.1)
[2021-09-24 14:14] LABS: ALBUMIN 3.6 g/dL (3.4-5.0); ALBUMIN/GLOBULIN RATIO 0.9 (1.0-1.7); TOTAL BILIRUBIN 0.6 mg/dL (0.2-1.0); TOTAL PROTEIN 7.8 g/dL (6.4-8.2)
[2021-09-24] MEDS ORDERED: IV NORMAL SALINE 1000ML BAG 1,000 ML IV ONE (14:30)
[2021-09-24] MEDS ORDERED: PIPERACILLIN/TAZOBACTAM 4.5 GM in IV NORMAL SALINE 100ML 100 ML IV ONE (14:45)
[2021-09-24] MEDS ORDERED: PIPERACILLIN/TAZOBACTAM 4.5 GM in IV DEXTROSE 5% 100ML 100 ML IV ONE (14:45)
[2021-09-24 15:31] LABS: % BANDS 4 % (0-9); % LYMPHS 2 % (24-48); % MONOS 6 % (0-10); % SEGS 88 % (35-66)
[2021-09-24 15:35] LABS: PLT ESTIMATE ADEQUATE (ADEQUATE); TOXIC VACUOLATION SLIGHT
[2021-09-24 15:53] LABS: HYALINE CASTS, URINE MODERATE /HPF
[2021-09-24 15:54] LABS: AMORPHOUS SEDIMENT,UR PRESENT /HPF; BACTERIA,URINE 0 /HPF (0-FEW); RBC,URINE 0 /HPF (0-2); WBC,URINE 0 /HPF (0-4)
--- NOTE | 2021-09-24 17:14 | RAD ---
Exam: CT of chest without contrast INDICATION: Abnormal chest x-ray, question pneumothorax TECHNIQUE: Sequential axial images through the chest obtained without IV contrast. Sagittal and coron al reformatted images were reconstructed from the axial data and reviewed. Exposure: One or more of the following in the visualized dose reduction techniques were utilized for this examination: 1. Automated exposure control 2. Adjustment of the MA and/or KV according to patient size 3. Use of iterative of reconstructive technique Comparisons: Finding FINDINGS: Visualized portions of the thyroid are unremarkable. No enlarged mediastinal lymph nodes are identifi ed. Heart size is normal. No pericardial effusion. Thoracic aorta has normal course and caliber. Pulmonar y artery is not enlarged. Mild coronary artery calcifications. Airways are patent. No pneumothorax. There is bronchial wall thickening noted at the lower lobes with linear bandlike opacity at the right lower lobe. Paraseptal emphysematous change noted at the upper lungs. Additionally there is mild centrilobular emphysematous change noted. No pleural effusion or thickening. Visualized upper abdomen is unremarkable. IMPRESSION: 1. No pneumothorax. 2. Paraseptal emphysematous change at the upper lungs, likely account for the finding on x-ray. 3. Mucous plugging at the lower lobes with bibasilar airspace disease, may relate to atelectasis or developing infectious process. Electronically signed by: Min Domingo MD (09/24/2021 5:11 PM) [facility]
[2021-09-24] MEDS: IPRATRPIUM/ALBUTEROL 0.5/2.5MG 3 ML NEBU. NEB SCH ×2 (17:45→18:16)
[2021-09-24] MEDS ORDERED: PIP/TAZO PER PHARMACY MC PRN (17:45)
[2021-09-24] MEDS: PIPERACILLIN/TAZOBACTAM 3.375 GM in IV NORMAL SALINE 50ML 50 ML IV SCH ×2 (18:00→22:55)
--- NOTE | 2021-09-24 18:40 | NUR ---
The patient, ALLAN PALOMARES, 80 y/o, M admitted by LILLIAN OGLESBY MD, was given written information regarding hospital policies, unit procedures and contact persons. Valuables were checked and left with him.
[2021-09-24 19:00] VITALS: BP 122/66
--- NOTE | 2021-09-24 19:25 | PDOC1 ---
History and Physical Date of Admission Date of Admission DATE: 09/24/21 TIME: 19:14 Source Source: Caregiver, Chart review History of Present Illness History of Present Illness Mr. Ortega is a 80 year old male admit for confusion, weakness, not eating or drinking much for days. Patient's states that He has been deteriorating over the last few months, but with days to weeks of marked change with hardly eating recently. . Patient unable to carry out ADLs by himself, she must do ALL ADLs, he has not been able to feed himself recently. With discussing with his , she states that she can no longer take care of him but would liek to keep him out of a [place] [facility] facility. he has not driven for years and has stopped doing the finances years ago, on namenda, aricept, PCP Is Dr. Rich He is retired from [employer], Past Medical History Cardiovascular: HTN Pulmonary: COPD CENTRAL NERVOUS SYSTEM: Dementia GI: No pertinent hx Past Surgical History Past Surgical History: Cholecystectomy, Total hip replacement Family History Family History: No Significant Social History ALCOHOL: none Drugs: None Current Problem List Problem List Problems Medical Problems: (1) Dehydration Status: Acute (2) Failure to thrive Status: Acute (3) Leukocytosis Status: Acute Current Medications Current Medications Current Medications Piperacillin Sod/ Tazobactam Sod 4.5 gm/Sodium Chloride 100 ml @ 200 mls/hr 1X ONCE IV ; Start 09/24/21 at 14:45; Stop 09/24/21 at 14:34; Status DC Sodium Chloride 1,000 ml @ 1,000 mls/hr 1X ONCE IV Last administered on 09/24/21at 14:45; Start 09/24/21 at 14:30; Stop 09/24/21 at 15:29; Status DC Piperacillin Sod/ Tazobactam Sod 4.5 gm/Dextrose 100 ml @ 200 mls/hr 1X ONCE IV Last administered on 09/24/21at 14:46; Start 09/24/21 at 14:45; Stop 09/24/21 at 15:14; Status DC Piperacillin Sod/ Tazobactam Sod (Zosyn Per Pharmacy) 1 each PRN DAILY PRN MC SEE COMMENTS; Start 09/24/21 at 17:45 Donepezil HCl (Aricept) 5 mg HS PO ; Start 09/24/21 at 21:00 Duloxetine HCl (Cymbalta) 30 mg DAILY PO ; Start 09/25/21 at 09:00 Albuterol/ Ipratropium (Duoneb) 3 ml QID NEB Last administered on 09/24/21at 18:16; Start 09/24/21 at 17:45 Lidocaine (Lidoderm) 1 patch DAILY TD ; Start 09/25/21 at 09:00 Tamsulosin HCl (Flomax) 0.4 mg HS PO ; Start 09/24/21 at 21:00 Trazodone HCl (Desyrel) 100 mg HS PO ; Start 09/24/21 at 21:00 Miscellaneous (Lidoderm Patch Removal) 1 ea QHS MC ; Start 09/24/21 at 21:00 Piperacillin Sod/ Tazobactam Sod 3.375 gm/Sodium Chloride 50 ml @ 100 mls/hr Q 6HRS IV ; Start 09/24/21 at 18:00 Active Scripts Active Lidocaine PATCH (Lidocaine) 1 Each Adh..patch 1 Patch TD DAILY 10 Days Prednisone 20 Mg Tablet 60 Mg PO DAILY 7 Days Duoneb 0.5-3(2.5) Mg/3 Ml (Albuterol/Ipratropium) 3 Ml Ampul.neb 3 Ml NEB QID 30 Days Reported Vitamin D3 (Vitamin D) 125 Mcg Capsule 125 Mcg PO DAILY 5,000 UNITS = 125 MCG Ursodiol 300 Mg Capsule 300 Mg PO BID Spiriva (Tiotropium [place]) 18 Mcg Cap.w.dev 2 Inh IH DAILY Hydrochlorothiazide Tablet (Hydrochlorothiazide) 12.5 Mg Tablet 12.5 Mg PO DAILY Cymbalta (Duloxetine Hcl) 30 Mg Capsule.dr 30 Mg PO DAILY Trazodone Hcl 100 Mg Tablet 100 Mg PO HS Lyrica (Pregabalin) 150 Mg Capsule 150 Mg PO BID 30 Days Tamsulosin Hcl 0.4 Mg Cap.er.24h 0.4 Mg PO HS Spironolactone 50 Mg Tablet 2 Tab PO DAILY Super B Complex (Vitamin B Complex & Vit C No.4) 150 Mg Tablet 150 Mg PO DAILY Aricept (Donepezil Hcl) 5 Mg Tablet 5 Mg PO HS Allergies Allergies: Coded Allergies: codeine (Verified Adverse Reaction, Intermediate, 05/21/21) constipated ROS Review of System unable due to demetnia and confusion, provides positives only General: YES: Fatigue, Malaise PSYCHOLOGICAL ROS: YES: Memory difficulties Musculoskeletal: Yes Muscular Weakness Neurological: Yes Confusion Physical Exam General: Alert, Cooperative HEENT: PERRLA Heart: S1S2 Extremities: No cyanosis, No edema, Other (marked muscle wasting throughout ) Skin: No breakdown, No significant lesion, Other Neuro: Sensation intact, Reflexes 2+, Other (frail, thin, speech is a little sensicle, follows most commands, needs to be asked more than once repeatedly) Psych/Mental Status: Other (confusiion, dementia) Vitals Vitals Vital Signs Date Time Temp Pulse Resp B/P (MAP) Pulse Ox O2 Delivery O2 Flow Rate FiO2 09/24/21 18:31 Nasal Cannula 4.0 09/24/21 15:45 104 18 134/94 (107) 100 09/24/21 13:01 98.1 98.1 Labs Labs Laboratory Tests Test 09/24/21 13:40 09/24/21 13:45 09/24/21 15:23 White Blood Count 19.9 x10^3/uL (4.0-11.0) Red Blood Count 4.91 x10^6/uL (4.30-5.70) Hemoglobin 14.8 g/dL (13.0-17.5) Hematocrit 44.3 % (39.0-53.0) Mean Corpuscular Volume 90 fL (79-100) Mean Corpuscular Hemoglobin 30 pg (25-35) Mean Corpuscular Hemoglobin Concent 33 g/dL (31-37) Red Cell Distribution Width 13.6 % (11.5-14.5) Platelet Count 325 x10^3/uL (140-400) Neutrophils (%) (Auto) 91 % (31-73) Lymphocytes (%) (Auto) 3 % (24-48) Monocytes (%) (Auto) 6 % (0-9) Eosinophils (%) (Auto) 0 % (0-3) Basophils (%) (Auto) 0 % (0-3) Neutrophils # (Auto) 18.0 x10^3/uL (1.8-7.7) Lymphocytes # (Auto) 0.6 x10^3/uL (1.0-4.8) Monocytes # (Auto) 1.2 x10^3/uL (0.0-1.1) Eosinophils # (Auto) 0.0 x10^3/uL (0.0-0.7) Basophils # (Auto) 0.1 x10^3/uL (0.0-0.2) Segmented Neutrophils % 88 % (35-66) Band Neutrophils % 4 % (0-9) Lymphocytes % 2 % (24-48) Monocytes % 6 % (0-10) Toxic Vacuolation Slight Platelet Estimate Adequate (ADEQUATE) Large Platelets Mod Giant Platelets Occ Prothrombin Time 14.0 SEC (11.7-14.0) Prothromb Time International Ratio 1.1 (0.8-1.1) Sodium Level 134 mmol/L (136-145) Potassium Level 5.4 mmol/L (3.5-5.1) Chloride Level 95 mmol/L (98-107) Carbon Dioxide Level 35 mmol/L (21-32) Anion Gap 4 (6-14) Blood Urea Nitrogen 40 mg/dL (8-26) Creatinine 1.3 mg/dL (0.7-1.3) Estimated GFR (Cockcroft-Gault) 64.3 BUN/Creatinine Ratio 31 (6-20) Glucose Level 178 mg/dL (70-99) Lactic Acid Level 2.0 mmol/L (0.4-2.0) Calcium Level 10.2 mg/dL (8.5-10.1) Total Bilirubin 0.6 mg/dL (0.2-1.0) Aspartate Amino Transf (AST/SGOT) 19 U/L (15-37) Alanine Aminotransferase (ALT/SGPT) 17 U/L (16-63) Alkaline Phosphatase 79 U/L (46-116) Ammonia < 10 mcmol/L (11-34) RI-Ncw-U-Type Natriuretic Peptide 154 pg/mL (0-449) Total Protein 7.8 g/dL (6.4-8.2) Albumin 3.6 g/dL (3.4-5.0) Albumin/Globulin Ratio 0.9 (1.0-1.7) SARS-CoV-2 Antigen (Rapid) Negative (NEGATIVE) Urine Collection Type Unknown Urine Color (Auto) Yellow Urine Turbidity Clear Urine pH (Auto) 5.0 (<5.0-8.0) Urine Specific [place] 1.015 (1.000-1.030) Urine Protein (Auto) Negative mg/dL (Negative) Urine Glucose (Auto)(UA) Negative mg/dL (Negative) Urine Ketones (Auto) 10 mg/dL (Negative) Urine Blood (Auto) Negative (Negative) Urine Nitrite (Auto) Negative (Negative) Urine Bilirubin (Auto) Negative (Negative) Urine Urobilinogen (Auto) Normal mg/dL (Normal) Urine Leukocyte Esterase (Auto) Negative (Negative) Urine RBC 0 /HPF (0-2) Urine WBC 0 /HPF (0-4) Urine Amorphous Sediment Present /HPF Urine Bacteria 0 /HPF (0-FEW) Urine Hyaline Casts Moderate /HPF Urine Mucus Mod /LPF Laboratory Tests Test 09/24/21 13:40 09/24/21 13:45 09/24/21 15:23 White Blood Count 19.9 x10^3/uL (4.0-11.0) Red Blood Count 4.91 x10^6/uL (4.30-5.70) Hemoglobin 14.8 g/dL (13.0-17.5) Hematocrit 44.3 % (39.0-53.0) Mean Corpuscular Volume 90 fL (79-100) Mean Corpuscular Hemoglobin 30 pg (25-35) Mean Corpuscular Hemoglobin Concent 33 g/dL (31-37) Red Cell Distribution Width 13.6 % (11.5-14.5) Platelet Count 325 x10^3/uL (140-400) Neutrophils (%) (Auto) 91 % (31-73) Lymphocytes (%) (Auto) 3 % (24-48) Monocytes (%) (Auto) 6 % (0-9) Eosinophils (%) (Auto) 0 % (0-3) Basophils (%) (Auto) 0 % (0-3) Neutrophils # (Auto) 18.0 x10^3/uL (1.8-7.7) Lymphocytes # (Auto) 0.6 x10^3/uL (1.0-4.8) Monocytes # (Auto) 1.2 x10^3/uL (0.0-1.1) Eosinophils # (Auto) 0.0 x10^3/uL (0.0-0.7) Basophils # (Auto) 0.1 x10^3/uL (0.0-0.2) Segmented Neutrophils % 88 % (35-66) Band Neutrophils % 4 % (0-9) Lymphocytes % 2 % (24-48) Monocytes % 6 % (0-10) Toxic Vacuolation Slight Platelet Estimate Adequate (ADEQUATE) Large Platelets Mod Giant Platelets Occ Prothrombin Time 14.0 SEC (11.7-14.0) Prothromb Time International Ratio 1.1 (0.8-1.1) Sodium Level 134 mmol/L (136-145) Potassium Level 5.4 mmol/L (3.5-5.1) Chloride Level 95 mmol/L (98-107) Carbon Dioxide Level 35 mmol/L (21-32) Anion Gap 4 (6-14) Blood Urea Nitrogen 40 mg/dL (8-26) Creatinine 1.3 mg/dL (0.7-1.3) Estimated GFR (Cockcroft-Gault) 64.3 BUN/Creatinine Ratio 31 (6-20) Glucose Level 178 mg/dL (70-99) Lactic Acid Level 2.0 mmol/L (0.4-2.0) Calcium Level 10.2 mg/dL (8.5-10.1) Total Bilirubin 0.6 mg/dL (0.2-1.0) Aspartate Amino Transf (AST/SGOT) 19 U/L (15-37) Alanine Aminotransferase (ALT/SGPT) 17 U/L (16-63) Alkaline Phosphatase 79 U/L (46-116) Ammonia < 10 mcmol/L (11-34) SC-Ezh-B-Type Natriuretic Peptide 154 pg/mL (0-449) Total Protein 7.8 g/dL (6.4-8.2) Albumin 3.6 g/dL (3.4-5.0) Albumin/Globulin Ratio 0.9 (1.0-1.7) SARS-CoV-2 Antigen (Rapid) Negative (NEGATIVE) Urine Collection Type Unknown Urine Color (Auto) Yellow Urine Turbidity Clear Urine pH (Auto) 5.0 (<5.0-8.0) Urine Specific [place] 1.015 (1.000-1.030) Urine Protein (Auto) Negative mg/dL (Negative) Urine Glucose (Auto)(UA) Negative mg/dL (Negative) Urine Ketones (Auto) 10 mg/dL (Negative) Urine Blood (Auto) Negative (Negative) Urine Nitrite (Auto) Negative (Negative) Urine Bilirubin (Auto) Negative (Negative) Urine Urobilinogen (Auto) Normal mg/dL (Normal) Urine Leukocyte Esterase (Auto) Negative (Negative) Urine RBC 0 /HPF (0-2) Urine WBC 0 /HPF (0-4) Urine Amorphous Sediment Present /HPF Urine Bacteria 0 /HPF (0-FEW) Urine Hyaline Casts Moderate /HPF Urine Mucus Mod /LPF VTE Prophylaxis Ordered VTE Prophylaxis Devices: Yes VTE Pharmacological Prophylaxi: Yes Assessment/Plan Assessment/Plan dehydration leukocytosis, tachycardia, sepsis NOS, started on zosyn, unsure of source, cx taken dementia, worsening over time with acute metabolic encephalopathy malnutrition, weight loss, muscle wasting, sarcopenia COPD, nebs, steriod nebs, atelectasis noted, chronic weakness, Justifications for Admission Other Justification LILLIAN OGLESBY MD Sep 24, 2021 19:25
[2021-09-24] MEDS ORDERED: IV DEXTROSE 5 %-0.45 % NACL 1,000 ML IV ONE (19:30)
[2021-09-24] MEDS: BUDESONIDE 0.5 MG/2 ML NEBU. NEB SCH (20:00)
[2021-09-24] MEDS ORDERED: IV DEXTROSE 5% 250 ML BAG. IV PRN (20:45)
[2021-09-24] MEDS ORDERED: DEXTROSE 50% 25 GM / 50ML DISP.SYRIN. IV PRN (20:45)
[2021-09-24] MEDS: PATCH REMOVAL. MC SCH (21:00)
[2021-09-24] MEDS: INSULIN LISPRO 300 UNITS/3 ML VIAL. SQ SCH (21:09)
[2021-09-24] MEDS: ENOXAPARIN 40 MG/0.4 ML SYRINGE. SQ SCH (21:16)
[2021-09-24] MEDS: TAMSULOSIN 0.4 MG CAP.ER.24H. PO SCH (21:18)
[2021-09-24] MEDS: traZODone 100 MG TABLET. PO SCH (21:18)
[2021-09-24] MEDS: DONEPEZIL HCL 5 MG TABLET. PO SCH (21:18)
[2021-09-24 23:04] VITALS: BP 116/70
[2021-09-25] MEDS ORDERED: BENZ-8 PO (00:28)
[2021-09-25 03:09] VITALS: BP 112/65
[2021-09-25] MEDS: PIPERACILLIN/TAZOBACTAM 3.375 GM in IV NORMAL SALINE 50ML 50 ML IV SCH ×4 (04:51→23:30)
--- NOTE | 2021-09-25 07:25 | EKG ---
[facility] [address] [place] [address] Test Date: 2021-09-24 Test Time: 14:30:57 Pat Name: ALLAN PALOMARES Department: Room: [facility] Gender: M Supervisor Public Message Service: : 1940 Requested By: RAFITA MUNGUIA Order Number: [id number] Reading MD: Navdeep Waters Measurements Intervals [place] Rate: 110 P: 36 MD: 162 QRS: 20 QRSD: 88 T: 91 QT: 316 QTc: 433 Interpretive Statements SINUS TACHYCARDIA LOW LIMB LEAD VOLTAGE QRS(T) CONTOUR ABNORMALITY CONSIDER ANTEROLATERAL MYOCARDIAL DAMAGE Electronically Signed On 10-10-2021 18:56:14 CDT by Navdeep Waters
--- NOTE | 2021-09-25 07:25 | EKG ---
[facility] [address] [place] [address] Test Date: 2021-09-24 Test Time: 13:37:28 Pat Name: ALLAN PALOMARES Department: Room: 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
[2021-09-25] MEDS: BUDESONIDE 0.5 MG/2 ML NEBU. NEB SCH ×2 (08:00→19:53)
[2021-09-25] MEDS: IPRATRPIUM/ALBUTEROL 0.5/2.5MG 3 ML NEBU. NEB SCH ×3 (08:00→19:53)
[2021-09-25 08:04] VITALS: BP 122/63
[2021-09-25 08:22] LABS: BASO # 0.1 x10^3/uL (0.0-0.2); BASO % 0 % (0-3); EOS # 0.1 x10^3/uL (0.0-0.7); EOS % 0 % (0-3); HEMATOCRIT 41.1 % (39.0-53.0); HEMOGLOBIN 13.4 g/dL (13.0-17.5); LYMPH # 1.5 x10^3/uL (1.0-4.8); LYMPH % 8 % (24-48); MEAN CORPUSCULAR HEMOGLOBIN 30 pg (25-35); MEAN CORPUSCULAR HGB CONC 33 g/dL (31-37); MEAN CORPUSCULAR VOLUME 91 fL (79-100); MONO # 1.5 x10^3/uL (0.0-1.1); MONO % 8 % (0-9); NEUT # 15.6 x10^3/uL (1.8-7.7); NEUT % 83 % (31-73); PLATELET COUNT 260 x10^3/uL (140-400); RED BLOOD COUNT 4.52 x10^6/uL (4.30-5.70); RED CELL DISTRIBUTION WIDTH 13.7 % (11.5-14.5); WHITE BLOOD COUNT 18.7 x10^3/uL (4.0-11.0)
[2021-09-25 08:42] LABS: ALBUMIN 3.1 g/dL (3.4-5.0); ALBUMIN/GLOBULIN RATIO 0.9 (1.0-1.7); CALCIUM 9.6 mg/dL (8.5-10.1); CREATININE 0.9 mg/dL (0.7-1.3); GFR 98.2; POTASSIUM 4.2 mmol/L (3.5-5.1); TOTAL BILIRUBIN 0.6 mg/dL (0.2-1.0); TOTAL PROTEIN 6.7 g/dL (6.4-8.2)
[2021-09-25] MEDS: LIDOCAINE (700MG/PATCH) PATCH. TD SCH (08:42)
[2021-09-25] MEDS: DULoxetine HCL 30 MG CAPSULE.DR PO SCH (08:42)
[2021-09-25] MEDS: INSULIN LISPRO 300 UNITS/3 ML VIAL. SQ SCH ×4 (08:45→21:00)
[2021-09-25 11:00] VITALS: BP 110/59
[2021-09-25 15:00] VITALS: BP 110/65
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
[2021-09-25 19:00] VITALS: BP 115/66
[2021-09-25] MEDS: PATCH REMOVAL. MC SCH (21:00)
[2021-09-25] MEDS: TAMSULOSIN 0.4 MG CAP.ER.24H. PO SCH (21:36)
[2021-09-25] MEDS: ENOXAPARIN 40 MG/0.4 ML SYRINGE. SQ SCH (21:36)
[2021-09-25] MEDS: traZODone 100 MG TABLET. PO SCH (21:36)
[2021-09-25] MEDS: LACTOBACILLUS RHAMNOSUS GG 1 CAPSULE. PO SCH (21:36)
[2021-09-25] MEDS: DONEPEZIL HCL 5 MG TABLET. PO SCH (21:36)
[2021-09-25 23:03] VITALS: BP 110/71
[2021-09-26 03:06] VITALS: BP 120/71
[2021-09-26] MEDS: PIPERACILLIN/TAZOBACTAM 3.375 GM in IV NORMAL SALINE 50ML 50 ML IV SCH ×3 (05:44→18:02)
[2021-09-26 07:00] VITALS: BP 121/65
[2021-09-26] MEDS: INSULIN LISPRO 300 UNITS/3 ML VIAL. SQ SCH ×4 (07:30→21:00)
[2021-09-26] MEDS: IPRATRPIUM/ALBUTEROL 0.5/2.5MG 3 ML NEBU. NEB SCH ×4 (08:10→20:38)
[2021-09-26] MEDS: BUDESONIDE 0.5 MG/2 ML NEBU. NEB SCH ×2 (08:11→20:39)
[2021-09-26] MEDS: DULoxetine HCL 30 MG CAPSULE.DR PO SCH (08:30)
[2021-09-26] MEDS: LIDOCAINE (700MG/PATCH) PATCH. TD SCH (08:30)
[2021-09-26] MEDS: LACTOBACILLUS RHAMNOSUS GG 1 CAPSULE. PO SCH ×2 (08:30→21:47)
[2021-09-26 11:00] VITALS: BP 113/57
--- NOTE | 2021-09-26 11:40 | NUR ---
SS following for discharge planning. SS reviewed pt chart and discussed with pt RN. Pt is from home with spouse and is currently requiring oxygen at three liters nasal canula. Pt on IV Zosyn. PT/OT recommended residential unit. PO diet. SS and physician met with pt's spouse in room and discussed discharge planning. Pt's spouse requesting residential unit at this time and requested referral be phoned and faxed to [facility], ; fax [phone]. Referral sent as requested. COVID19 PCR test pending for placement. SS will continue to follow for discharge planning.
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
[2021-09-26 15:00] VITALS: BP 129/66
[2021-09-26 19:00] VITALS: BP 116/54
[2021-09-26] MEDS: PATCH REMOVAL. MC SCH (21:00)
[2021-09-26] MEDS: DONEPEZIL HCL 5 MG TABLET. PO SCH (21:47)
[2021-09-26] MEDS: TAMSULOSIN 0.4 MG CAP.ER.24H. PO SCH (21:47)
[2021-09-26] MEDS: traZODone 100 MG TABLET. PO SCH (21:47)
[2021-09-26] MEDS: ENOXAPARIN 40 MG/0.4 ML SYRINGE. SQ SCH (21:48)
[2021-09-26 23:00] VITALS: BP 126/72
[2021-09-27] MEDS: PIPERACILLIN/TAZOBACTAM 3.375 GM in IV NORMAL SALINE 50ML 50 ML IV SCH ×3 (00:06→13:09)
[2021-09-27 03:00] VITALS: BP 118/70
[2021-09-27] MEDS: BUDESONIDE 0.5 MG/2 ML NEBU. NEB SCH (06:11)
[2021-09-27] MEDS: IPRATRPIUM/ALBUTEROL 0.5/2.5MG 3 ML NEBU. NEB SCH ×3 (06:11→16:03)
[2021-09-27 07:00] VITALS: BP 119/58
[2021-09-27] MEDS: INSULIN LISPRO 300 UNITS/3 ML VIAL. SQ SCH ×3 (07:30→16:30)
[2021-09-27] MEDS: LACTOBACILLUS RHAMNOSUS GG 1 CAPSULE. PO SCH (08:59)
[2021-09-27] MEDS: DULoxetine HCL 30 MG CAPSULE.DR PO SCH (08:59)
[2021-09-27] MEDS: LIDOCAINE (700MG/PATCH) PATCH. TD SCH (09:00)
[2021-09-27 09:19] LABS: BASO # 0.1 x10^3/uL (0.0-0.2); BASO % 0 % (0-3); EOS # 0.3 x10^3/uL (0.0-0.7); EOS % 2 % (0-3); HEMATOCRIT 37.1 % (39.0-53.0); HEMOGLOBIN 11.9 g/dL (13.0-17.5); LYMPH # 1.7 x10^3/uL (1.0-4.8); LYMPH % 11 % (24-48); MEAN CORPUSCULAR HEMOGLOBIN 29 pg (25-35); MEAN CORPUSCULAR HGB CONC 32 g/dL (31-37); MEAN CORPUSCULAR VOLUME 92 fL (79-100); MONO # 1.3 x10^3/uL (0.0-1.1); MONO % 9 % (0-9); NEUT % 78 % (31-73); PLATELET COUNT 206 x10^3/uL (140-400); RED BLOOD COUNT 4.05 x10^6/uL (4.30-5.70); RED CELL DISTRIBUTION WIDTH 13.9 % (11.5-14.5); WHITE BLOOD COUNT 15.4 x10^3/uL (4.0-11.0)
[2021-09-27 10:05] LABS: ALBUMIN 2.7 g/dL (3.4-5.0); ALBUMIN/GLOBULIN RATIO 0.9 (1.0-1.7); CALCIUM 9.3 mg/dL (8.5-10.1); CREATININE 0.7 mg/dL (0.7-1.3); GFR 131.3; POTASSIUM 4.4 mmol/L (3.5-5.1); TOTAL BILIRUBIN 0.5 mg/dL (0.2-1.0); TOTAL PROTEIN 5.8 g/dL (6.4-8.2)
--- NOTE | 2021-09-27 10:30 | SNU/HH DC ---
DISCHARGE ORDERS DISCHARGE INFORMATION: DISCHARGE DATE: Sep 27, 2021 FINAL DIAGNOSIS sarcopenina malnutrition depression weakness, debility insomnia, COPD Problems Medical Problems: (1) Dehydration Status: Acute (2) Failure to thrive Status: Acute (3) Leukocytosis Status: Acute CONDITION ON DISCHARGE: Stable CODE STATUS: Code Status: Full SENIOR LIVING: SNF STAY <30 DAYS: Yes POST DISCHARGE ORDERS: ACTIVITY ORDERS: No restrictions WEIGHT BEARING STATUS: Full weight bearing BATHING ORDERS: No Tub Bath until see DIET AFTER DISCHARGE: ADA WOUND/INCISION CARE: No wound care needed CHECKS AFTER DISCHARGE: CHECKS AFTER DISCHARGE: Check blood press - daily, Check your Temp as needed TREATMENT/EQUIPMENT ORDERS: ADAPTIVE EQUIPMENT NEEDED: Cane, Walker RESPIRATORY EQUIPMENT NEEDED: Nebulizer Physical Therapy For: Evalulation/Treatment Occupational Therapy For: Evaluation/Treatment Speech Language Pathology For: Evaluation/Treatment DISCHARGE MEDICATIONS: Home Meds Active Scripts Ipratropium/Albuterol Sulfate (DUONEB 0.5-3(2.5) MG/3 ML) 3 Ml Ampul.neb, 3 ML NEB QID for copd for 30 Days, #120 EACH Prov:JOE GARNICA MD 07/14/18 Reported Medications Benzonatate (BENZONATATE) 100 Mg Capsule, 1-2 CAP PO Q4HRS for cough, #60 CAP 09/25/21 Ursodiol (URSODIOL) 300 Mg Capsule, 300 MG PO BID for Gallstones, CAP 07/14/18 Tiotropium [place] (SPIRIVA) 18 Mcg Cap.w.dev, 2 INH IH DAILY for SOA, #1 INH 0 Refills 07/14/18 Hydrochlorothiazide (HYDROCHLOROTHIAZIDE TABLET) 12.5 Mg Tablet, 12.5 MG PO DAILY for DIURETIC, TAB 0 Refills 06/22/18 Duloxetine Hcl (CYMBALTA) 30 Mg Capsule.dr, 30 MG PO DAILY, CAP 02/11/18 Trazodone Hcl (TRAZODONE HCL) 100 Mg Tablet, 100 MG PO HS, TAB 02/11/18 Tamsulosin Hcl (TAMSULOSIN HCL) 0.4 Mg Cap.er.24h, 0.4 MG PO HS, TAB 02/11/18 Spironolactone (SPIRONOLACTONE) 50 Mg Tablet, 2 TAB PO DAILY, #30 TAB 5 Refills 02/10/18 Vitamin B Complex & Vit C No.4 (SUPER B COMPLEX) 150 Mg Tablet, 150 MG PO DAILY, TAB 01/05/18 Donepezil Hcl (ARICEPT) 5 Mg Tablet, 5 MG PO HS, TAB 09/10/16 Discontinued Reported Medications Cholecalciferol (Vitamin D3) (Vitamin D3 ) 125 Mcg Capsule, 125 MCG PO DAILY for SUPPLEMENT, CAP 5,000 UNITS = 125 MCG 05/21/21 Pregabalin (LYRICA) 150 Mg Capsule, 150 MG PO BID for 30 Days, CAP 02/11/18 Discontinued Scripts Lidocaine (Lidocaine PATCH ) 1 Each Adh..patch, 1 PATCH TD DAILY for . for 10 Days, #10 PATCH Prov:ELBERT MONTES III DO 05/25/21 Prednisone (PREDNISONE) 20 Mg Tablet, 60 MG PO DAILY for COPD for 7 Days, #21 TAB Prov:ELIZABETH VAZQUEZ MD 02/02/20 LILLIAN OGLESBY MD Sep 27, 2021 10:30
[2021-09-27 11:00] VITALS: BP 116/58
--- NOTE | 2021-09-27 11:02 | NUR ---
SS following up with discharge planning. SS reviewed pt chart and discussed with pt RN. Pt is currently requiring oxygen at three liters nasal canula. COVID19 negative. PT/OT recommended snf unit. Pt accepted at [facility], ; fax [phone]. Discharge orders received and sent to [facility]. Pt will discharge today and go to [facility] between 1500 and 1530 today via stretcher transport arranged by [facility]. Pt, pt's RN, and pt's spouse notified.
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
[2021-09-27 15:00] VITALS: BP 103/64
--- NOTE | 2021-09-27 17:02 | NUR ---
Patient discharged to [facility], escorted by transportation and with a couple days of clothing. IV and telemonitor discontinued by Juan HAND. Report given to Addie DODD.
== END 2021-09-27 17:02 | DRG 871 ==
LOC: ER 13:01 → 5 NORTH 16:30
PROVIDERS: ADMIT Internal Medicine; ATTEND Internal Medicine
DX: A41.9 Sepsis, unspecified organism (principal); G93.41 Metabolic encephalopathy; E46 Unspecified protein-calorie malnutrition; J98.11 Atelectasis; E86.0 Dehydration; F03.90 Unspecified dementia, unspecified severity, without behavioral disturbance, psychotic disturbance, mood disturbance, and anxiety; J44.9 Chronic obstructive pulmonary disease, unspecified; E11.9 Type 2 diabetes mellitus without complications; E78.00 Pure hypercholesterolemia, unspecified; I10 Essential (primary) hypertension; M62.84 Sarcopenia; R62.7 Adult failure to thrive; F32.A Depression, unspecified; Z68.20 Body mass index [BMI] 20.0-20.9, adult; Z88.8 Allergy status to other drugs, medicaments and biological substances
CPT/HCPCS: 36415; 70450; 71045; 71250; 80053; 81001; 82140; 82962; 83605; 83880; 85007; 85025; 85610; 87040; 87426; 93005; 94640; 94760; 96365; J1650; J1815; J2543; J7030; J7042; J7060; U0003; 92610-GN; 97110-GP; 97530-GP; 97535-GO; 99285-25; G0378; J7626